=== PATIENT | male | born 2000 | race Caucasian/White ===

== ENCOUNTER 2021-08-21 15:28 | Inpatient (IN) | payer OTHER, SELFPAY ==
--- NOTE | 2021-08-21 17:36 | PC.NURSE ---
Pt admitted to M3 from [facility] ED on CV for SI following a suicide attempt by cutting left arm and chest. pt states disappointed to be alive. Pt very cooperative and fully engaged on admission Pt alert and fully oriented. reports auditory hallucinations to cut himself/kill himself. In addition, pt reports ideation to harm others. 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 Assessments completed and pt requesting to take a shower. Prior to shower pt stated I'm very cooperative and will do whatever you guys tell me to Just don't touch my face feeling of hopelessness discussed and pt states will find staff if feelings of hurting self or others.Pt states has been 100% compliant with medications but states he is now having CAH increasing for past few days. states if takes meds for sleep will sleep for 12 hours if no meds sleeps few hours. Shower taken. Laceration to left forearm redressed with dry sterile dressing with 5 sutures and steri strip. no drainage noted from site no redness or edema. Pt denies pain. pt conversing with pts and engaged in puzzle
[2021-08-21 18:00] VITALS: BP 145/69; PULSE 66; TEMP 36.7; O2SAT 98
[2021-08-21] MEDS: hydrOXYzine HCL 25 MG TABLET PO (20:46)
[2021-08-21] MEDS: QUEtiapine Fumarate 400 MG TABLET PO (20:46)
[2021-08-21] MEDS: metFORMIN HCl 500 MG TABLET PO (20:46)
[2021-08-21] MEDS: Melatonin 3 MG TABLET 9 MG PO (20:46)
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
[2021-08-21] MEDS: traZODone HCL 50 MG TABLET PO (23:44)
[2021-08-22 08:56] VITALS: BP 120/57; PULSE 60; RESP 18; TEMP 36.6; O2SAT 96
[2021-08-22] MEDS: metFORMIN HCl 500 MG TABLET PO ×2 (09:09→20:56)
[2021-08-22] MEDS: Venlafaxine HCL 25 MG TABLET 75 MG PO (09:09)
[2021-08-22] MEDS: QUEtiapine Fumarate 50 MG TABLET PO (09:09)
--- NOTE | 2021-08-22 09:24 | P.PNPSI_ITS ---
Subjective Subjective Date of Service: 08/22/21 Reason For Visit: SI Subjective Notes: Conditional Voluntary Interim History: Pt reports he slept well. He reports hearing voices- 2 guys and 1 girl. He reports hearing voices for the past 2 years. He reports passive SI but denies any plan or intent to hurt himself. He reports recently switched to new therapist who he has not met. He reports feeling increasingly more depressed for the past 2 weeks, but he states he is not sure of any triggers. He does report thinking about his father who when pt was 14 y/o on father's day. Medication Compliance: Yes Review of Systems Review of Systems Denies chest pain Denies shortness of breath Denies nausea vomiting diarrhea Denies fever chills Mental Status Exam Mental Status Exam Narrative: A&O. Overweight, casual attire. Good eye contact, attentive. No Tics or Tremors. No abnormal involuntary movements. Calm, somewhat guarded but able to answer questions. Non-pressured speech, spontaneous with regular rate and rhythm, normal volume and prosody. No prolonged speech latency or dysarthria. Mood is ?depressed,? affect is constricted. Endorses SI and urges to self harm but denies plan or intent, denies HI. Endorses CAH, denies VH or delusional thought content. Thoughts significant for negativity bias. No known cognitive or memory impairment. Insight/ Judgment limited. Diagnostics Vital Signs (24Hr): Vital Signs - 24 hr 08/21/21 18:00 08/22/21 08:56 Temperature 98.0 F 97.9 F Pulse Rate 66 60 Respiratory Rate 18 Blood Pressure 145/69 H 120/57 L Pulse Oximetry 98 96 Oxygen Delivery Method Room Air Room Air Labs Results: 08/22/21 08:43 Labs: Laboratory Results - last 48 hr 08/22/21 08/22/21 08/22/21 08:43 08:43 08:43 Sodium 139 Potassium 4.1 Chloride 107 Carbon Dioxide 23 Anion Gap 13 BUN 13 Creatinine 0.95 Estim Creat Clear Calc TNP Estimated GFR > 60 Fasting Glucose 110 H Estimat Average Glucose 111 Hemoglobin A1c % 5.5 Calcium 9.0 Total Bilirubin 0.3 AST 21 ALT 32 Alkaline Phosphatase 89 Total Protein 6.9 Albumin 4.2 Triglycerides 221 Cholesterol 159 LDL Cholesterol, Calc 86 HDL Cholesterol 29 Vitamin B12 378 Folate 15.0 TSH 1.30 Medications Medications Current Medications Acetaminophen (Acetaminophen 325 Mg Tablet) 650 mg PO Q6H PRN PRN Reason: Headache/Pain Mild Scale (1-3) Al Hydroxide/Mg Hydroxide (Magnesium Hydrox/Alum Hydrox 30 Ml Oral.Susp) 30 ml PO Q6H PRN PRN Reason: Heartburn/Nausea Famotidine (Famotidine 20 Mg Tablet) 20 mg PO DAILY PRN PRN Reason: Nausea Last Admin: 08/22/21 12:56 Dose: 20 mg Hydroxyzine HCl (Hydroxyzine Hcl 25 Mg Tablet) 25 mg PO Q6H PRN PRN Reason: Anxiety Last Admin: 08/21/21 20:46 Dose: 25 mg Hydroxyzine HCl (Hydroxyzine Hcl 50 Mg Tablet) 50 mg PO DAILY PRN PRN Reason: Anxiety Magnesium Hydroxide (Milk Of Magnesia 30 Ml Oral.Susp) 30 ml PO DAILY PRN PRN Reason: Constipation Melatonin (Melatonin 3 Mg Tablet) 9 mg PO BEDTIME CHRIS Last Admin: 08/21/21 20:46 Dose: 9 mg Metformin HCl (Metformin Hcl 500 Mg Tablet) 500 mg PO BID [facility] Last Admin: 08/22/21 09:09 Dose: 500 mg Quetiapine Fumarate (Quetiapine Fumarate 50 Mg Tablet) 50 mg PO DAILY [facility] Last Admin: 08/22/21 09:09 Dose: 50 mg Quetiapine Fumarate (Quetiapine Fumarate 400 Mg Tablet) 400 mg PO BEDTIME CHRIS Last Admin: 08/21/21 20:46 Dose: 400 mg Quetiapine Fumarate (Quetiapine Fumarate 25 Mg Tablet) 25 mg PO TID PRN PRN Reason: anxiety Last Admin: 08/22/21 11:01 Dose: 25 mg Trazodone HCl (Trazodone Hcl 50 Mg Tablet) 50 mg PO BEDTIME PRN PRN Reason: Insomnia Last Admin: 08/21/21 23:44 Dose: 50 mg Venlafaxine HCl (Venlafaxine Hcl 25 Mg Tablet) 75 mg PO DAILY [facility] Last Admin: 08/22/21 09:09 Dose: 75 mg Allergies Allergies Allergy/AdvReac Type Severity Reaction Status Date / Time No Known Allergies Allergy Verified 08/21/21 16:01 Assessment & Plan Assessment & Plan (1) Schizoaffective disorder, depressive type: Status: Acute Code(s): F25.1 - Schizoaffective disorder, depressive type (2) Type 2 diabetes mellitus: Status: Acute Code(s): E11.9 - Type 2 diabetes mellitus without complications Plan Reality is a 21 y.o. Male who carries a dx of schizoaffective disorder, depressive type. Pt presented to [facility] ED on 08/21/21 due to depression, SI, and SIB. Pt had self administered cuts to his chest, wrist via razor blade, some lacerations due require suturing on L forearm. Pt endorsed command AH, worsening over the last few days. Pt has hx of self harming bx, SA by OD, and CAH telling him to harm himself and others. Hx of multiple psych admissions since 2014. PLAN 1. Admit to M3, cv 15 minutes checks 08/22 continue current medications. I spent minutes with the patient and/or on the patient floor today, greater than?50% of which was spent counseling/coordinating care. Reason for contiued inpatient stay Substantial Risk for: harm to self and harm to others
[2021-08-22 09:39] LABS: Estimated Average Glucose 111 mg/dL; Hemoglobin A1C 132.6535 umol/L; Hemoglobin A1c % 5.5 %
[2021-08-22 09:41] LABS: Alanine Aminotransferase 32 U/L (0-40); Albumin Level 4.2 g/dL (3.5-5.0); Alkaline Phosphatase 89 U/L (39-117); Anion Gap 13 (12-20); Aspartate Amino Transferase 21 U/L (5-37); Bilirubin Total 0.3 mg/dL (0.0-1.0); Blood Urea Nitrogen 13 mg/dL (9-16); Carbon Dioxide 23 mmol/L (22-29); Chloride 107 mmol/L (96-108); Cholesterol 159 mg/dL; Estimated Glomerular Filt Rate > 60; Glucose Fasting 110 mg/dL (60-99); HDL Cholesterol 29 mg/dL; LDL Cholesterol Calculated 86 mg/dl; Potassium 4.1 mmol/L (3.3-5.1); Sodium 139 mmol/L (135-145); Total Protein 6.9 g/dL (6.5-8.0); Triglycerides 221 mg/dL
[2021-08-22 10:19] LABS: Vitamin B12 378 pg/mL (200-900)
[2021-08-22] MEDS: QUEtiapine Fumarate 25 MG TABLET PO (11:01)
[2021-08-22] MEDS: Famotidine 20 MG TABLET PO (12:56)
--- NOTE | 2021-08-22 14:14 | P.PNIM_ITS ---
Subjective Subjective Date of Service: 08/22/21 Interval History: Routine new patient evaluation no acute issues Review of Systems Denies chest pain Denies shortness of breath Denies nausea vomiting diarrhea Denies fever chills Physical Exam Vital Signs: Vital Signs: Last Vital Signs Temp 97.9 F 08/22/21 08:56 Pulse 60 08/22/21 08:56 Resp 18 08/22/21 08:56 BP 120/57 L 08/22/21 08:56 Pulse Ox 96 08/22/21 08:56 O2 Del Method 08/22/21 08:56 Const: Other: No acute distress Resp: Other: Clear to auscultation bilaterally no rales rhonchi or wheezes Cardio: Other: No S4; positive S1-S2; no S3 murmurs rubs or gallops GI: Other: Soft nontender nondistended with normoactive bowel sounds Neuro: Other: Cranial nerves 2-12 grossly intact as tested. Motor is 5/5 all extremities. Sensation is intact. Gait is normal. Cognition appropriate Extrem: Other: No edema bilaterally Objective Data Active Medications Acetaminophen (Acetaminophen 325 Mg Tablet) 650 mg PO Q6H PRN PRN Reason: Headache/Pain Mild Scale (1-3) Al Hydroxide/Mg Hydroxide (Magnesium Hydrox/Alum Hydrox 30 Ml Oral.Susp) 30 ml PO Q6H PRN PRN Reason: Heartburn/Nausea Famotidine (Famotidine 20 Mg Tablet) 20 mg PO DAILY PRN PRN Reason: Nausea Last Admin: 08/22/21 12:56 Dose: 20 mg Documented By: KARTHIK Hydroxyzine HCl (Hydroxyzine Hcl 25 Mg Tablet) 25 mg PO Q6H PRN PRN Reason: Anxiety Last Admin: 08/21/21 20:46 Dose: 25 mg Documented By: CHELSEA Hydroxyzine HCl (Hydroxyzine Hcl 50 Mg Tablet) 50 mg PO DAILY PRN PRN Reason: Anxiety Magnesium Hydroxide (Milk Of Magnesia 30 Ml Oral.Susp) 30 ml PO DAILY PRN PRN Reason: Constipation Melatonin (Melatonin 3 Mg Tablet) 9 mg PO BEDTIME [facility] Last Admin: 08/21/21 20:46 Dose: 9 mg Documented By: CHELSEA Metformin HCl (Metformin Hcl 500 Mg Tablet) 500 mg PO BID [facility] Last Admin: 08/22/21 09:09 Dose: 500 mg Documented By: EJ Quetiapine Fumarate (Quetiapine Fumarate 50 Mg Tablet) 50 mg PO DAILY [facility] Last Admin: 08/22/21 09:09 Dose: 50 mg Documented By: STELLA Quetiapine Fumarate (Quetiapine Fumarate 400 Mg Tablet) 400 mg PO BEDTIME [facility] Last Admin: 08/21/21 20:46 Dose: 400 mg Documented By: CHELSEA Quetiapine Fumarate (Quetiapine Fumarate 25 Mg Tablet) 25 mg PO TID PRN PRN Reason: anxiety Last Admin: 08/22/21 11:01 Dose: 25 mg Documented By: LALITA Trazodone HCl (Trazodone Hcl 50 Mg Tablet) 50 mg PO BEDTIME PRN PRN Reason: Insomnia Last Admin: 08/21/21 23:44 Dose: 50 mg Documented By: CHELSEA Venlafaxine HCl (Venlafaxine Hcl 25 Mg Tablet) 75 mg PO DAILY [facility] Last Admin: 08/22/21 09:09 Dose: 75 mg Documented By: STELLA Labs CBC & Chem 7: 08/22/21 08:43 Labs: Laboratory Results - last 24 hr 08/22/21 08/22/21 08/22/21 08:43 08:43 08:43 Anion Gap 13 Estim Creat Clear Calc TNP Estimated GFR > 60 Fasting Glucose 110 H Estimat Average Glucose 111 Hemoglobin A1c % 5.5 Calcium 9.0 Total Bilirubin 0.3 AST 21 ALT 32 Alkaline Phosphatase 89 Total Protein 6.9 Albumin 4.2 Triglycerides 221 Cholesterol 159 LDL Cholesterol, Calc 86 HDL Cholesterol 29 Vitamin B12 378 Folate 15.0 TSH 1.30 Assessment and Plan (1) Schizoaffective disorder, depressive type: Status: Acute (2) Type 2 diabetes mellitus: Status: Acute Plan 21-year-old male admitted to inpatient psych unit with diagnosis of schizoaffective disorder depressive type. There are no acute medical issues; physical exam unremarkable. Labs reviewed; glucose acceptable. Continue metformin as ordered. No need to follow POCs. Quality Stroke Does the patient have a stroke diagnosis?: No VTE Prior VTE?: No VTE Risk Level:: Medical - low VTE Device Contraindication: Treatment Not Indicated VTE Drug Contraindication: Treatment Not Indicated
[2021-08-22 18:00] VITALS: BP 136/65; PULSE 72; RESP 18; TEMP 36.7; O2SAT 98
[2021-08-22] MEDS: Melatonin 3 MG TABLET 9 MG PO (20:56)
[2021-08-22] MEDS: QUEtiapine Fumarate 400 MG TABLET PO (20:56)
[2021-08-23 08:22] VITALS: BP 121/68; PULSE 61; RESP 17; TEMP 36.6; O2SAT 98
[2021-08-23] MEDS: Venlafaxine HCL 25 MG TABLET 75 MG PO (08:36)
[2021-08-23] MEDS: metFORMIN HCl 500 MG TABLET PO ×2 (08:37→20:13)
[2021-08-23] MEDS: QUEtiapine Fumarate 50 MG TABLET PO (08:38)
[2021-08-23 08:43] LABS: Glucose, Whole Blood 108 mg/dL (60-115)
[2021-08-23] MEDS: Bismuth Subsalicylate 262 MG TABLET 524 MG PO (18:06)
[2021-08-23] MEDS: QUEtiapine Fumarate 25 MG TABLET PO (19:16)
[2021-08-23 20:00] VITALS: BP 149/80; PULSE 70; TEMP 36.6; O2SAT 97
[2021-08-23] MEDS: Melatonin 3 MG TABLET 9 MG PO (20:13)
[2021-08-23] MEDS: QUEtiapine Fumarate 200 MG TABLET PO (20:13)
[2021-08-23] MEDS: QUEtiapine Fumarate 400 MG TABLET PO (20:13)
--- NOTE | 2021-08-23 23:50 | P.PNPSI_ITS ---
Subjective Subjective Date of Service: 08/23/21 Reason For Visit: SI Subjective Notes: [facility] Warning and Conditional Voluntary Healthcare Proxy: No Guardianship: No Medical Problems Affecting Mental Status: No Interim History: Patient seen and discussed with team. Patient evaluated today and upon interview pt addressed some of his mom's concerns i.e. He denies giving away any possessions recently, saying I have not given things away in a year. Says his mom is over thinking so much, pt is not concerned with his cannabis use, as he says it helps him with anxiety/ agitation and he plans to get a medical card. Falls asleep within two hours and sleeps through the night. Denies increased appetite on seroquel. Mood is a little bit less depressed, feels less lonely as he has people he can relate to on the unit. Says being home is the most stressful thing, because his mom wants him to stay home and does not like his cannabis use. Continues to endorse intermittent AH to harm himself when he is triggered. In the milieu, patient is safe and appropriate in behavior, visible, social. Says he feels safe. Medication Compliance: Yes Side effects from medications: No Attending Groups: Yes Review of Systems Acute medical concerns: No Medical Review of Systems: unchanged Mental Status Exam Mental Status Exam Narrative: A&O. Overweight, casual attire. Good eye contact, attentive. No Tics or Tremors. No abnormal involuntary movements. Calm, somewhat guarded but able to answer questions. Non-pressured speech, spontaneous with regular rate and rhythm, normal volume and prosody. No prolonged speech latency or dysarthria. Mood is ?less depressed,? affect is constricted. Endorses SI and urges to self harm but denies plan or intent, denies HI. Endorses CAH, denies VH or delusional thought content. Thoughts significant for negativity bias. No known cognitive or memory impairment. Insight/ Judgment limited. Diagnostics Vital Signs (24Hr): Vital Signs - 24 hr 08/23/21 20:00 08/24/21 08:15 Temperature 97.9 F 97.9 F Pulse Rate 70 71 Respiratory Rate 16 Blood Pressure 149/80 H 129/61 Pulse Oximetry 97 98 Oxygen Delivery Method Room Air Room Air Labs Results: 08/22/21 08:43 Labs: Laboratory Results - last 48 hr 08/23/21 08:35 POC Glucose 108 Medications Medications Current Medications Acetaminophen (Acetaminophen 325 Mg Tablet) 650 mg PO Q6H PRN PRN Reason: Headache/Pain Mild Scale (1-3) Al Hydroxide/Mg Hydroxide (Magnesium Hydrox/Alum Hydrox 30 Ml Oral.Susp) 30 ml PO Q6H PRN PRN Reason: Heartburn/Nausea Bismuth Subsalicylate (Bismuth Subsalicylate 262 Mg Tablet) 524 mg PO QID PRN PRN Reason: upset stomach Last Admin: 08/23/21 18:06 Dose: 524 mg Famotidine (Famotidine 20 Mg Tablet) 20 mg PO DAILY PRN PRN Reason: Nausea Last Admin: 08/22/21 12:56 Dose: 20 mg Hydroxyzine HCl (Hydroxyzine Hcl 25 Mg Tablet) 25 mg PO Q6H PRN PRN Reason: Anxiety Last Admin: 08/21/21 20:46 Dose: 25 mg Hydroxyzine HCl (Hydroxyzine Hcl 50 Mg Tablet) 50 mg PO DAILY PRN PRN Reason: Anxiety Magnesium Hydroxide (Milk Of Magnesia 30 Ml Oral.Susp) 30 ml PO DAILY PRN PRN Reason: Constipation Melatonin (Melatonin 3 Mg Tablet) 9 mg PO BEDTIME [facility] Last Admin: 08/23/21 20:13 Dose: 9 mg Metformin HCl (Metformin Hcl 500 Mg Tablet) 500 mg PO BID [facility] Last Admin: 08/24/21 08:17 Dose: 500 mg Quetiapine Fumarate (Quetiapine Fumarate 50 Mg Tablet) 50 mg PO DAILY [facility] Last Admin: 08/24/21 08:16 Dose: 50 mg Quetiapine Fumarate (Quetiapine Fumarate 400 Mg Tablet) 400 mg PO BEDTIME [facility] Last Admin: 08/23/21 20:13 Dose: 400 mg Quetiapine Fumarate (Quetiapine Fumarate 25 Mg Tablet) 25 mg PO TID PRN PRN Reason: anxiety Last Admin: 08/24/21 10:29 Dose: 25 mg Quetiapine Fumarate (Quetiapine Fumarate 200 Mg Tablet) 200 mg PO BEDTIME [facility] Last Admin: 08/23/21 20:13 Dose: 200 mg Trazodone HCl (Trazodone Hcl 50 Mg Tablet) 50 mg PO BEDTIME PRN PRN Reason: Insomnia Last Admin: 08/21/21 23:44 Dose: 50 mg Venlafaxine HCl (Venlafaxine Hcl 25 Mg Tablet) 75 mg PO DAILY [facility] Last Admin: 08/24/21 08:16 Dose: 75 mg Allergies Allergies Allergy/AdvReac Type Severity Reaction Status Date / Time No Known Allergies Allergy Verified 08/21/21 16:01 Assessment & Plan Assessment & Plan (1) Schizoaffective disorder, depressive type: Status: Acute Code(s): F25.1 - Schizoaffective disorder, depressive type (2) Type 2 diabetes mellitus: Status: Acute Code(s): E11.9 - Type 2 diabetes mellitus without complications Plan Reality is a 21 y.o. Male who carries a dx of schizoaffective disorder, depressive type. Pt presented to [facility] ED on 08/21/21 due to depression, SI, and SIB. Pt had self administered cuts to his chest, wrist via razor blade, some lacerations due require suturing on L forearm. Pt endorsed command AH, worsening over the last few days. Pt has hx of self harming bx, SA by OD, and CAH telling him to harm himself and others. Hx of multiple psych admissions since 2014. PLAN 1. Admit to M3, cv 15 minutes checks 08/22 continue current medications. 08/23 increase seroquel to 600 mg QHS for depression, AH I spent minutes with the patient and/or on the patient floor today, greater than?50% of which was spent counseling/coordinating care. Patient educated on: medication risk/benefits Reason for contiued inpatient stay Substantial Risk for: harm to self and med/psych decompensation
[2021-08-24 08:15] VITALS: BP 129/61; PULSE 71; RESP 16; TEMP 36.6; O2SAT 98
[2021-08-24] MEDS: Venlafaxine HCL 25 MG TABLET 75 MG PO (08:16)
[2021-08-24] MEDS: QUEtiapine Fumarate 50 MG TABLET PO (08:16)
[2021-08-24] MEDS: metFORMIN HCl 500 MG TABLET PO ×2 (08:17→20:15)
[2021-08-24] MEDS: QUEtiapine Fumarate 25 MG TABLET PO (10:29)
--- NOTE | 2021-08-24 11:50 | P.PNPSI_ITS ---
Subjective Subjective Date of Service: 08/24/21 Reason For Visit: SI Subjective Notes: [facility] Warning and Conditional Voluntary Healthcare Proxy: No Guardianship: No Medical Problems Affecting Mental Status: No Interim History: Patient seen and discussed with team. Patient evaluated today and upon interview he reports he has been having some anxiety and depression and he feels sleepy but super hyper. He had an incident on the unit in which he reports CAH telling him to hurt another pt on the unit, however he utilized PRN. Otherwise, he says most of the day I was feeling pretty positive. Today he has noticed the voices are less bad. Says depression is better today too. In the milieu, patient is safe and social in behavior. Says he feels safe. Denies SI/SIB. Medication Compliance: Yes Side effects from medications: No Attending Groups: Yes Review of Systems Acute medical concerns: No Medical Review of Systems: unchanged Mental Status Exam Mental Status Exam Narrative: A&O. Overweight, casual attire. Good eye contact, attentive. No Tics or Tremors. No abnormal involuntary movements. Calm, somewhat guarded but able to answer q uestions. Non-pressured speech, spontaneous with regular rate and rhythm, normal volume and prosody. No prolonged speech latency or dysarthria. Mood is ?less depressed,? affect is constricted. Denies SI/SIB. Denies HI. Endorses CAH, denies VH or delusional thought content. Thoughts organized. No known cognitive or memory impairment. Insight/ Judgment limited. Diagnostics Vital Signs (24Hr): Vital Signs - 24 hr 08/23/21 20:00 08/24/21 08:15 Temperature 97.9 F 97.9 F Pulse Rate 70 71 Respiratory Rate 16 Blood Pressure 149/80 H 129/61 Pulse Oximetry 97 98 Oxygen Delivery Method Room Air Room Air Labs Results: 08/22/21 08:43 Labs: Laboratory Results - last 48 hr 08/23/21 08:35 POC Glucose 108 Medications Medications Current Medications Acetaminophen (Acetaminophen 325 Mg Tablet) 650 mg PO Q6H PRN PRN Reason: Headache/Pain Mild Scale (1-3) Al Hydroxide/Mg Hydroxide (Magnesium Hydrox/Alum Hydrox 30 Ml Oral.Susp) 30 ml PO Q6H PRN PRN Reason: Heartburn/Nausea Bismuth Subsalicylate (Bismuth Subsalicylate 262 Mg Tablet) 524 mg PO QID PRN PRN Reason: upset stomach Last Admin: 08/23/21 18:06 Dose: 524 mg Famotidine (Famotidine 20 Mg Tablet) 20 mg PO DAILY PRN PRN Reason: Nausea Last Admin: 08/22/21 12:56 Dose: 20 mg Hydroxyzine HCl (Hydroxyzine Hcl 25 Mg Tablet) 25 mg PO Q6H PRN PRN Reason: Anxiety Last Admin: 08/21/21 20:46 Dose: 25 mg Hydroxyzine HCl (Hydroxyzine Hcl 50 Mg Tablet) 50 mg PO DAILY PRN PRN Reason: Anxiety Magnesium Hydroxide (Milk Of Magnesia 30 Ml Oral.Susp) 30 ml PO DAILY PRN PRN Reason: Constipation Melatonin (Melatonin 3 Mg Tablet) 9 mg PO BEDTIME [facility] Last Admin: 08/23/21 20:13 Dose: 9 mg Metformin HCl (Metformin Hcl 500 Mg Tablet) 500 mg PO BID [facility] Last Admin: 08/24/21 08:17 Dose: 500 mg Quetiapine Fumarate (Quetiapine Fumarate 50 Mg Tablet) 50 mg PO DAILY [facility] Last Admin: 08/24/21 08:16 Dose: 50 mg Quetiapine Fumarate (Quetiapine Fumarate 400 Mg Tablet) 400 mg PO BEDTIME [facility] Last Admin: 08/23/21 20:13 Dose: 400 mg Quetiapine Fumarate (Quetiapine Fumarate 25 Mg Tablet) 25 mg PO TID PRN PRN Reason: anxiety Last Admin: 08/24/21 10:29 Dose: 25 mg Quetiapine Fumarate (Quetiapine Fumarate 200 Mg Tablet) 200 mg PO BEDTIME [facility] Last Admin: 08/23/21 20:13 Dose: 200 mg Trazodone HCl (Trazodone Hcl 50 Mg Tablet) 50 mg PO BEDTIME PRN PRN Reason: Insomnia Last Admin: 08/21/21 23:44 Dose: 50 mg Venlafaxine HCl (Venlafaxine Hcl 25 Mg Tablet) 75 mg PO DAILY [facility] Last Admin: 08/24/21 08:16 Dose: 75 mg Allergies Allergies Allergy/AdvReac Type Severity Reaction Status Date / Time No Known Allergies Allergy Verified 08/21/21 16:01 Assessment & Plan Assessment & Plan (1) Schizoaffective disorder, depressive type: Status: Acute Code(s): F25.1 - Schizoaffective disorder, depressive type (2) Type 2 diabetes mellitus: Status: Acute Code(s): E11.9 - Type 2 diabetes mellitus without complications Plan Reality is a 21 y.o. Male who carries a dx of schizoaffective disorder, depressive type. Pt presented to [facility] ED on 08/21/21 due to depression, SI, and SIB. Pt had self administered cuts to his chest, wrist via razor blade, some lacerations due require suturing on L forearm. Pt endorsed command AH, worsening over the last few days. Pt has hx of self harming bx, SA by OD, and CAH telling him to harm himself and others. Hx of multiple psych admissions since 2014. PLAN 1. Admit to M3, cv 15 minutes checks 08/22 continue current medications. 08/23 increase seroquel to 600 mg QHS for depression, AH 08/24 monitor seroquel for benefit, pt is calmer today but he did report CAH telling him to harm another pt. I spent minutes with the patient and/or on the patient floor today, greater than?50% of which was spent counseling/coordinating care. Patient educated on: medication risk/benefits and therapeutic strategies Reason for contiued inpatient stay Substantial Risk for: rapid decompensation and med/psych decompensation
[2021-08-24] MEDS: hydrOXYzine HCL 50 MG TABLET PO (12:46)
[2021-08-24] MEDS: Famotidine 20 MG TABLET PO (16:23)
[2021-08-24] MEDS: Bismuth Subsalicylate 262 MG TABLET 524 MG PO ×2 (16:33→17:54)
[2021-08-24] MEDS: QUEtiapine Fumarate 400 MG TABLET PO (20:14)
[2021-08-24] MEDS: Melatonin 3 MG TABLET 9 MG PO (20:17)
[2021-08-24] MEDS: QUEtiapine Fumarate 200 MG TABLET PO (20:17)
[2021-08-24 20:23] VITALS: BP 134/74; PULSE 85; TEMP 36.4; O2SAT 98
[2021-08-25 08:40] VITALS: BP 129/68; PULSE 77; RESP 18; TEMP 35.7; O2SAT 99
[2021-08-25] MEDS: Venlafaxine HCL 25 MG TABLET 75 MG PO (08:40)
[2021-08-25] MEDS: QUEtiapine Fumarate 50 MG TABLET PO (08:41)
[2021-08-25] MEDS: metFORMIN HCl 500 MG TABLET PO ×2 (08:41→20:04)
[2021-08-25] MEDS: Bismuth Subsalicylate 262 MG TABLET 524 MG PO (11:16)
[2021-08-25] MEDS: QUEtiapine Fumarate 25 MG TABLET PO ×2 (12:08→20:05)
[2021-08-25] MEDS: hydrOXYzine HCL 25 MG TABLET PO (12:08)
[2021-08-25] MEDS: Magnesium Hydrox/Alum Hydrox 30 ML ORAL.SUSP PO (15:15)
[2021-08-25] MEDS: hydrOXYzine HCL 50 MG TABLET PO (16:15)
[2021-08-25] MEDS: QUEtiapine Fumarate 400 MG TABLET PO (20:05)
[2021-08-25] MEDS: QUEtiapine Fumarate 200 MG TABLET PO (20:05)
[2021-08-25] MEDS: Melatonin 3 MG TABLET 9 MG PO (20:05)
[2021-08-25 20:24] VITALS: BP 141/68; PULSE 89; RESP 18; TEMP 36.7; O2SAT 96
--- NOTE | 2021-08-25 20:41 | P.PNPSI_ITS ---
Subjective Subjective Date of Service: 08/25/21 Reason For Visit: SI Subjective Notes: [facility] Warning Interim History: Patient seen and discussed with team. Patient evaluated today and upon interview pt reports he slept well, woke up beautifully. Says the voices are a lot less active today. I feel like im doing better. Says he feels really close to being ready to go out i.e. discharge home. In the milieu, patient is safe and appropriate in behavior, social. Denies SI/SIB/HI upon inquiry. Denies irritability or assaultive ideation. Says he feels safe. Medication Compliance: Yes Side effects from medications: No Attending Groups: Yes Review of Systems Acute medical concerns: No Medical Review of Systems: unchanged Mental Status Exam Mental Status Exam Narrative: A&O. Overweight, casual attire. Good eye contact, attentive. No Tics or Tremors. No abnormal involuntary movements. Calm, cooperative. Non-pressured speech, spontaneous with regular rate and rhythm, normal volume and prosody. No prolonged speech latency or dysarthria. Mood is ?better,? affect is euthymic. Denies SI/SIB. Denies HI. Endorses CAH, denies VH or delusional thought content. Thoughts organized. No known cognitive or memory impairment. Insight/ Judgment limited. Diagnostics Vital Signs (24Hr): Vital Signs - 24 hr 08/25/21 20:24 08/26/21 08:45 Temperature 98.1 F 97.4 F Pulse Rate 89 89 Respiratory Rate 18 18 Blood Pressure 141/68 H 135/67 Pulse Oximetry 96 98 Oxygen Delivery Method Room Air Room Air Labs Results: 08/22/21 08:43 Medications Medications Current Medications Acetaminophen (Acetaminophen 325 Mg Tablet) 650 mg PO Q6H PRN PRN Reason: Headache/Pain Mild Scale (1-3) Al Hydroxide/Mg Hydroxide (Magnesium Hydrox/Alum Hydrox 30 Ml Oral.Susp) 30 ml PO Q6H PRN PRN Reason: Heartburn/Nausea Last Admin: 08/25/21 15:15 Dose: 30 ml Bismuth Subsalicylate (Bismuth Subsalicylate 262 Mg Tablet) 524 mg PO QID PRN PRN Reason: upset stomach Last Admin: 08/25/21 11:16 Dose: 524 mg Famotidine (Famotidine 20 Mg Tablet) 20 mg PO DAILY PRN PRN Reason: Nausea Last Admin: 08/24/21 16:23 Dose: 20 mg Hydroxyzine HCl (Hydroxyzine Hcl 25 Mg Tablet) 25 mg PO Q6H PRN PRN Reason: Anxiety Last Admin: 08/25/21 12:08 Dose: 25 mg Hydroxyzine HCl (Hydroxyzine Hcl 50 Mg Tablet) 50 mg PO DAILY PRN PRN Reason: Anxiety Last Admin: 08/25/21 16:15 Dose: 50 mg Magnesium Hydroxide (Milk Of Magnesia 30 Ml Oral.Susp) 30 ml PO DAILY PRN PRN Reason: Constipation Melatonin (Melatonin 3 Mg Tablet) 9 mg PO BEDTIME [facility] Last Admin: 08/25/21 20:05 Dose: 9 mg Metformin HCl (Metformin Hcl 500 Mg Tablet) 500 mg PO BID [facility] Last Admin: 08/26/21 08:46 Dose: 500 mg Quetiapine Fumarate (Quetiapine Fumarate 50 Mg Tablet) 50 mg PO DAILY [facility] Last Admin: 08/26/21 08:46 Dose: 50 mg Quetiapine Fumarate (Quetiapine Fumarate 400 Mg Tablet) 400 mg PO BEDTIME [facility] Last Admin: 08/25/21 20:05 Dose: 400 mg Quetiapine Fumarate (Quetiapine Fumarate 25 Mg Tablet) 25 mg PO TID PRN PRN Reason: anxiety Last Admin: 08/25/21 20:05 Dose: 25 mg Quetiapine Fumarate (Quetiapine Fumarate 200 Mg Tablet) 200 mg PO BEDTIME [facility] Last Admin: 08/25/21 20:05 Dose: 200 mg Trazodone HCl (Trazodone Hcl 50 Mg Tablet) 50 mg PO BEDTIME PRN PRN Reason: Insomnia Last Admin: 08/21/21 23:44 Dose: 50 mg Venlafaxine HCl (Venlafaxine Hcl 25 Mg Tablet) 75 mg PO DAILY [facility] Last Admin: 08/26/21 08:46 Dose: 75 mg Allergies Allergies Allergy/AdvReac Type Severity Reaction Status Date / Time No Known Allergies Allergy Verified 08/21/21 16:01 Assessment & Plan Assessment & Plan (1) Schizoaffective disorder, depressive type: Status: Acute Code(s): F25.1 - Schizoaffective disorder, depressive type (2) Type 2 diabetes mellitus: Status: Acute Code(s): E11.9 - Type 2 diabetes mellitus without complications Plan Reality is a 21 y.o. Male who carries a dx of schizoaffective disorder, depressive type. Pt presented to [facility] ED on 08/21/21 due to depression, SI, and SIB. Pt had self administered cuts to his chest, wrist via razor blade, some lacerations due require suturing on L forearm. Pt endorsed command AH, worsening over the last few days. Pt has hx of self harming bx, SA by OD, and CAH telling him to harm himself and others. Hx of multiple psych admissions since 2014. PLAN 1. Admit to M3, cv 15 minutes checks 08/22 continue current medications. 08/23 increase seroquel to 600 mg QHS for depression, AH 08/24 monitor seroquel for benefit, pt is calmer today but he did report CAH telling him to harm another pt. 08/25 Pt denies AH today, says he feels like he is doing better I spent minutes with the patient and/or on the patient floor today, greater than?50% of which was spent counseling/coordinating care. Patient educated on: medication risk/benefits Reason for contiued inpatient stay Substantial Risk for: harm to self, harm to others, rapid decompensation and med/psych decompensation
[2021-08-26 08:45] VITALS: BP 135/67; PULSE 89; RESP 18; TEMP 36.3; O2SAT 98
[2021-08-26] MEDS: metFORMIN HCl 500 MG TABLET PO ×2 (08:46→20:02)
[2021-08-26] MEDS: Venlafaxine HCL 25 MG TABLET 75 MG PO (08:46)
[2021-08-26] MEDS: QUEtiapine Fumarate 50 MG TABLET PO (08:46)
[2021-08-26] MEDS: hydrOXYzine HCL 50 MG TABLET PO (14:56)
[2021-08-26] MEDS: Bismuth Subsalicylate 262 MG TABLET 524 MG PO (15:30)
[2021-08-26] MEDS: Magnesium Hydrox/Alum Hydrox 30 ML ORAL.SUSP PO (15:43)
[2021-08-26 20:00] VITALS: BP 133/70; PULSE 77; RESP 18; TEMP 36.3; O2SAT 98
[2021-08-26] MEDS: QUEtiapine Fumarate 200 MG TABLET PO (20:02)
[2021-08-26] MEDS: QUEtiapine Fumarate 400 MG TABLET PO (20:02)
[2021-08-26] MEDS: Melatonin 3 MG TABLET 9 MG PO (20:02)
[2021-08-26] MEDS: traZODone HCL 50 MG TABLET PO (20:39)
[2021-08-26] MEDS: QUEtiapine Fumarate 25 MG TABLET PO (20:39)
[2021-08-26] MEDS: hydrOXYzine HCL 25 MG TABLET PO (20:44)
[2021-08-27] MEDS: Venlafaxine HCL 25 MG TABLET 75 MG PO (09:37)
[2021-08-27] MEDS: metFORMIN HCl 500 MG TABLET PO ×2 (09:37→21:22)
[2021-08-27] MEDS: QUEtiapine Fumarate 50 MG TABLET PO (09:37)
[2021-08-27 09:43] VITALS: BP 132/79; PULSE 89; RESP 18; TEMP 36.9; O2SAT 98
[2021-08-27] MEDS: QUEtiapine Fumarate 25 MG TABLET PO (11:38)
[2021-08-27] MEDS: hydrOXYzine HCL 25 MG TABLET PO ×2 (11:38→21:22)
[2021-08-27] MEDS: Bismuth Subsalicylate 262 MG TABLET 524 MG PO (16:44)
[2021-08-27] MEDS: Magnesium Hydrox/Alum Hydrox 30 ML ORAL.SUSP PO (17:12)
--- NOTE | 2021-08-27 17:34 | HO.PSYCHPN ---
Subjective Subjective Date of Service: 08/27/21 Reason For Visit: SI Interim History: pt concerned he is eating to much at HS. educated seroquel may be responsible and counseled to be sure to sleep after taking it so as not to be up snacking. he feels he is sleeping well on seroquel, though. mood is pretty great. with some mild anxiety. very much wants to speak with [facility]. per staff, 3-day up 08/28. anxious. eating well, sleeping well. social and visible on eves. Mental Status Exam Mental Status Exam Narrative: A&O. Overweight, casual attire. Good eye contact, attentive. No Tics or Tremors. No abnormal involuntary movements. Calm, cooperative. Non-pressured speech, spontaneous with regular rate and rhythm, normal volume and prosody. No prolonged speech latency or dysarthria. Mood is ?pretty great. a little anxious,? affect is euthymic. Denies SI/SIB. Denies HI/AVH. Thoughts organized. No known cognitive or memory impairment. Insight/ Judgment limited. Diagnostics Vital Signs (24Hr): Vital Signs - 24 hr 08/26/21 20:00 08/27/21 09:43 Temperature 97.4 F 98.5 F Pulse Rate 77 89 Respiratory Rate 18 18 Blood Pressure 133/70 132/79 Pulse Oximetry 98 98 Oxygen Delivery Method Room Air Room Air Labs Results: 08/22/21 08:43 Medications Medications Current Medications Acetaminophen (Acetaminophen 325 Mg Tablet) 650 mg PO Q6H PRN PRN Reason: Headache/Pain Mild Scale (1-3) Al Hydroxide/Mg Hydroxide (Magnesium Hydrox/Alum Hydrox 30 Ml Oral.Susp) 30 ml PO Q6H PRN PRN Reason: Heartburn/Nausea Last Admin: 08/27/21 17:12 Dose: 30 ml Bismuth Subsalicylate (Bismuth Subsalicylate 262 Mg Tablet) 524 mg PO QID PRN PRN Reason: upset stomach Last Admin: 08/27/21 16:44 Dose: 524 mg Famotidine (Famotidine 20 Mg Tablet) 20 mg PO DAILY PRN PRN Reason: Nausea Last Admin: 08/24/21 16:23 Dose: 20 mg Hydroxyzine HCl (Hydroxyzine Hcl 25 Mg Tablet) 25 mg PO Q6H PRN PRN Reason: Anxiety Last Admin: 08/27/21 11:38 Dose: 25 mg Hydroxyzine HCl (Hydroxyzine Hcl 50 Mg Tablet) 50 mg PO DAILY PRN PRN Reason: Anxiety Last Admin: 08/26/21 14:56 Dose: 50 mg Magnesium Hydroxide (Milk Of Magnesia 30 Ml Oral.Susp) 30 ml PO DAILY PRN PRN Reason: Constipation Melatonin (Melatonin 3 Mg Tablet) 9 mg PO BEDTIME [facility] Last Admin: 08/26/21 20:02 Dose: 9 mg Metformin HCl (Metformin Hcl 500 Mg Tablet) 500 mg PO BID [facility] Last Admin: 08/27/21 09:37 Dose: 500 mg Quetiapine Fumarate (Quetiapine Fumarate 50 Mg Tablet) 50 mg PO DAILY [facility] Last Admin: 08/27/21 09:37 Dose: 50 mg Quetiapine Fumarate (Quetiapine Fumarate 400 Mg Tablet) 400 mg PO BEDTIME [facility] Last Admin: 08/26/21 20:02 Dose: 400 mg Quetiapine Fumarate (Quetiapine Fumarate 25 Mg Tablet) 25 mg PO TID PRN PRN Reason: anxiety Last Admin: 08/27/21 11:38 Dose: 25 mg Quetiapine Fumarate (Quetiapine Fumarate 200 Mg Tablet) 200 mg PO BEDTIME [facility] Last Admin: 08/26/21 20:02 Dose: 200 mg Trazodone HCl (Trazodone Hcl 50 Mg Tablet) 50 mg PO BEDTIME PRN PRN Reason: Insomnia Last Admin: 08/26/21 20:39 Dose: 50 mg Venlafaxine HCl (Venlafaxine Hcl 25 Mg Tablet) 75 mg PO DAILY [facility] Last Admin: 08/27/21 09:37 Dose: 75 mg Allergies Allergies Allergy/AdvReac Type Severity Reaction Status Date / Time No Known Allergies Allergy Verified 08/21/21 16:01 Assessment & Plan Assessment & Plan (1) Schizoaffective disorder, depressive type: Status: Acute Code(s): F25.1 - Schizoaffective disorder, depressive type (2) Type 2 diabetes mellitus: Status: Acute Code(s): E11.9 - Type 2 diabetes mellitus without complications Plan Reality is a 21 y.o. Male who carries a dx of schizoaffective disorder, depressive type. Pt presented to [facility] ED on 08/21/21 due to depression, SI, and SIB. Pt had self administered cuts to his chest, wrist via razor blade, some lacerations due require suturing on L forearm. Pt endorsed command AH, worsening over the last few days. Pt has hx of self harming bx, SA by OD, and CAH telling him to harm himself and others. Hx of multiple psych admissions since 2014. PLAN 1. Admit to M3, cv 15 minutes checks 08/22 continue current medications. 08/23 increase seroquel to 600 mg QHS for depression, AH 08/24 monitor seroquel for benefit, pt is calmer today but he did report CAH telling him to harm another pt. 08/25 Pt denies AH today, says he feels like he is doing better 08/27: no change in mgmt I spent __20____ minutes with the patient and/or on the patient floor today, greater than?50% of which was spent counseling/coordinating care. Reason for contiued inpatient stay Substantial Risk for: inability to function and rapid decompensation
[2021-08-27 21:20] VITALS: BP 136/76; PULSE 78; RESP 18; TEMP 36.5; O2SAT 97
[2021-08-27] MEDS: Melatonin 3 MG TABLET 9 MG PO (21:22)
[2021-08-27] MEDS: hydrOXYzine HCL 50 MG TABLET PO (21:22)
[2021-08-27] MEDS: QUEtiapine Fumarate 200 MG TABLET PO (21:22)
[2021-08-27] MEDS: QUEtiapine Fumarate 400 MG TABLET PO (21:22)
[2021-08-27] MEDS: traZODone HCL 50 MG TABLET PO (21:23)
[2021-08-28 08:01] VITALS: BP 131/70; PULSE 84; RESP 16; TEMP 36.6; O2SAT 100
[2021-08-28] MEDS: metFORMIN HCl 500 MG TABLET PO (08:06)
[2021-08-28] MEDS: QUEtiapine Fumarate 50 MG TABLET PO (08:07)
[2021-08-28] MEDS: Venlafaxine HCL 25 MG TABLET 75 MG PO (08:07)
--- NOTE | 2021-08-28 10:07 | P.DS_ITS ---
DS: Providers Provider Date of Service: 08/28/21 Date of admission: 08/21/21 15:28 Primary care physician: Dafne Snyder MD Consults: 08/21/21 17:55 Consult to Hospitalist Routine Consulting Provider: Hospitalist Reason For Exam: admitted from [facility] DS: Diagnosis Discharge Diagnosis (1) Schizoaffective disorder, depressive type: Status: Acute (2) Type 2 diabetes mellitus: Status: Acute DS: Medications Discharge Medications Home Medications: Home Medications Medication Instructions Recorded Confirmed melatonin 10 mg tablet 10 mg PO BEDTIME 08/21/21 08/21/21 metformin 500 mg tablet 500 mg PO BID 08/21/21 08/21/21 Previous Rx's Medication Instructions Recorded famotidine 20 mg tablet 20 mg PO DAILY PRN Nausea #30 tabs 08/28/21 hydroxyzine HCl 50 mg tablet 50 mg PO DAILY PRN Anxiety #30 tabs 08/28/21 quetiapine 200 mg tablet 200 mg PO BEDTIME #30 tabs 08/28/21 quetiapine 25 mg tablet 25 mg PO TID PRN anxiety #30 tabs 08/28/21 quetiapine 400 mg tablet 400 mg PO BEDTIME #30 tabs 08/28/21 quetiapine 50 mg tablet 50 mg PO DAILY #30 tabs 08/28/21 trazodone 50 mg tablet 50 mg PO BEDTIME PRN Insomnia #30 08/28/21 tabs venlafaxine 75 mg tablet 75 mg PO DAILY #30 tabs 08/28/21 Mental Status Exam Mental Status Exam Narrative: A&O. Overweight, casual attire. Good eye contact, attentive. No Tics or Tremors. No abnormal involuntary movements. Calm, cooperative. Non-pressured speech, spontaneous with regular rate and rhythm, normal volume and prosody. No prolonged speech latency or dysarthria. Mood is ?pretty great. a little anxious,? affect is euthymic. Denies SI/SIB. Denies HI/AVH. Thoughts organized. No known cognitive or memory impairment. Insight/ Judgment limited. Data Data Completed and Pending Completed studies during hospitalization [Text1]: 08/22/21 08/22/21 08/22/21 08:43 08:43 08:43 Sodium 139 Potassium 4.1 Chloride 107 Carbon Dioxide 23 Anion Gap 13 BUN 13 Creatinine 0.95 Estim Creat Clear Calc TNP Estimated GFR > 60 POC Glucose Fasting Glucose 110 H Estimat Average Glucose 111 Hemoglobin A1c % 5.5 Calcium 9.0 Total Bilirubin 0.3 AST 21 ALT 32 Alkaline Phosphatase 89 Total Protein 6.9 Albumin 4.2 Triglycerides 221 Cholesterol 159 LDL Cholesterol, Calc 86 HDL Cholesterol 29 Vitamin B12 378 Folate 15.0 TSH 1.30 08/23/21 08:35 Sodium Potassium Chloride Carbon Dioxide Anion Gap BUN Creatinine Estim Creat Clear Calc Estimated GFR POC Glucose 108 Fasting Glucose Estimat Average Glucose Hemoglobin A1c % Calcium Total Bilirubin AST ALT Alkaline Phosphatase Total Protein Albumin Triglycerides Cholesterol LDL Cholesterol, Calc HDL Cholesterol Vitamin B12 Folate TSH DS: Summary Hospital Course Hospital Course: HPI: Reality is a 21 y.o. Male who carries a dx of schizoaffective disorder, depressive type. Pt presented to [facility] ED on 08/21/21 due to depression, SI, and SIB. Pt had self administered cuts to his chest, wrist via razor blade, some lacerations due require suturing on L forearm. Pt endorsed command AH, worsening over the last few days, telling him to self harm and cut deeper, saying ?no one will miss him, no one cares, no one will know that he is gone.? 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 Unable to identify precipitating factors other than ?just life in general and stress.? Hx of multiple psych admissions since 2014. 08/21/21: CBC wnl, CMP wnl except random glucose H 101. Utox negative except for cannabis. No alcohol use. I evaluated the pt this evening and upon interview he reports he has been med adherent because his mom is the one who gives him the meds. Pt is a poor historian when it comes to past med trials. Says his sleep is good with seroquel, falls asleep 10pm-8am and that without it he will stay up until 2-3am and wakes up at 6am. Says he does not think his meds are really working, ?the only meds that are working are the insomnia meds.? Also reports past benefit on ativan and says ?they took it away for no reason.? Pt reports his AH are ?every now and then? and are ?triggered when I start feeling really sad.? Pt says he has been feeling sad due to ?thinking about the past,? i.e. old friends, his dad. Also says at work ([employer]) his coworkers are arguing, there is a lot of drama. Says he is ?feeling really lonely to be honest,? says he is feeling ?unloved? and ?like nobody would care if I wasn't here.? Says he tends to focus on the negative. He is somewhat future oriented, as he wants to work a job he enjoys, something in technology. Feels safe on the unit. Endorses passive SI and urges to self harm but denies plan or intent. Denies aggression. Pt reports his last incident of self harm was one year ago in which he engaged in superficial cutting. Pt uses cannabis in the morning and at bedtime. Denies other substance use or alcohol use. I spoke with pt?s mom on the phone. She reports pt has had similar episodes in which he is hospitalized, stabilized on meds, but says this only lasts a few months and then the effects seem to wear off. His Mom is concerned with his cannabis use. Says ?he?s okay if he doesnt associate with outside of the house? and that ?if associates he with his friends outside of the house or starts smoking then he ends up in crisis, he loses the control.? She reports recent concerning bx of selling his xbox, ?he disappears all this stuff,? and when his mom confronts him about selling his things he will say he dont know what happened to them. Per mom, at baseline pt is ?polite? and ?respectful,? but says ?when he starts smoking he?s another person,? i.e. easily agitated. Past Psychiatric History: -Past med trials: Thorazine, abilify, haldol, perphenazine, depakote, olanzapine, zoloft, ativan, Wellbutrin, Tenex, lexapro, and Ativan -Pt has OP psychiatrist, Apoorva Gaxiola and has OP therapy at [facility] -Per chart, pt has hx of HI and threats to harm the family pet -Hx of SIB via superficial cutting -Pt has hx of multiple psych admissions since 2014, last [facility] [place], [facility], [place]. Hx of CCS, CBAT, Pediatric PHP at [facility].? -Hx of presenting to crisis with SI with plans to overdose on meds or cut his throat/HI, self harming via cutting, and command AH.? ? I reviewed past [facility] records: -Pt has hx of being diagnosed with ADHD, DMDD in childhood. -Hx of suicide attempt by OD on Wellbutrin in August 2015 -Hx of CBAT program in 2015 for depression, aggression, SI, HI towards his peers and teachers with a plan to get a gun or bring a knife to school and to strangle his teachers. He was stabilized on Zoloft 75 mg, Wellbutrin 450 mg, and Melatonin 3mg.? -Hx of PHP in 2018, stabilized on lexapro 10 mg QHS and abilify 2 mg.? -IPLOC at [place] in 2018 for depression, SA by OD on unknown pills. He was stabilized on Depakote 250mg daily and 500mg qhs, Abilify 15mg qhs, and they d/c'd Lexapro. -IPLOC at [facility] in 2019 due to depression, A/VH, passive SI. He was given zoloft 50 mg along with his depakote and abilify.? -Hx of CCS/respite in 2020 for increased depression, AH, poor sleep. He was stabilized w/ the addition of Clonidine and Abilify was increased to 20mg. -Pt recently hospitalized at [facility] in 02/2021 due to command AH telling him to kill his mom and his dog. Abilify was discontinued and he was stabilized on quetiapine 25 mg tid prn, quetiapine 400 mg at bedtime and 50 mg daily, trazodone 50 mg at bedtime, effexor 75 mg, and hydroxyzine 50 mg prn. ? HOSPITAL COURSE On the unit, Mr. Husain was admitted on a CV and placed on 15 minutes checks for safety. Pt reported hearing voices on and off telling him to harm himself or others. He reports voices are two guys and one female. He does report voices getting worse with cannabis, which mother also reports but he insists smoking cannabis helps him calm down. We discussed risk of exacerbation of psychiatric symptoms mainly psychosis and delusions with cannabis. After discussing risks benefits and alternative treatment options, Mr. Husain agreed to continue and adjust seroquel for mood and voices. His affect gradually brighten without presenting labile. Pt denies VH/AH and did not appear internally preoccupied. He was increasingly more visible on the unit and social with select peers. He denied SI/HI throughout this admission. No plan or intent to hurt himself or others. He agreed to continue OP psychiatric treatment. Mother denied any safety concerns at time of discharge. There were no incidences of disruptive behaviors nor use of restraints. Status at Discharge Cognitive/behavioral status at discharge: Pt with bright, non labile affect. No SI/HI. No VH/AH. Sleep and appetite improved. No signs of psychosis or delusional content noted or reported. No signs of aggression towards self or others. Pt increasingly more future oriented as evidenced by statements related to looking forward to continue OP psych tx and see family. Functional status at discharge: independent ambulation Overall status at discharge: patient is progressing back to baseline Time Spent with Patient Time attestation: Total time spent providing and/or coordinating discharge services: Discharge Plan Discharge Patient Disposition: Home Health Service Discharge Diagnosis: Schizoaffective Disorder Referrals: Apoorva Gaxiola (psychiatrist) [Other] - 09/08/21 11:30 am (Telehealth appointment. You will remain on the waitlist for therapy) Department of Mental Health (DM) [Other] (If you feel that you need more support/services for your mental health, work with your CSP worker or psychiatrist to fill out a [facility] application. You and your family can also call to request assistance) [employer] (CSP) [Other] - 1 Week (Referral submitted. [facility] will be calling you to discuss the referral. If you do not hear from anyone within one week of discharge, call the number above for information) Dafne Snyder MD [Primary Care Provider] - 09/09/21 10:45 am () Discharge Medications: New quetiapine 25 mg Tablet 25 mg PO TID PRN (Reason: anxiety) Qty: 30 0RF trazodone 50 mg Tablet 50 mg PO BEDTIME PRN (Reason: Insomnia) Qty: 30 0RF quetiapine 200 mg Tablet 200 mg PO BEDTIME Qty: 30 0RF hydroxyzine HCl 50 mg Tablet 50 mg PO DAILY PRN (Reason: Anxiety) Qty: 30 0RF famotidine 20 mg Tablet 20 mg PO DAILY PRN (Reason: Nausea) Qty: 30 0RF quetiapine 50 mg Tablet 50 mg PO DAILY Qty: 30 0RF quetiapine 400 mg Tablet 400 mg PO BEDTIME Qty: 30 0RF Continued melatonin 10 mg Tablet 10 mg PO BEDTIME metformin 500 mg Tablet 500 mg PO BID venlafaxine 75 mg Tablet 75 mg PO DAILY Qty: 30 0RF Discontinued quetiapine [Seroquel] 25 mg Tablet 25 mg PO DAILY hydroxyzine HCl 50 mg Tablet 50 mg PO DAILY PRN (Reason: Anxiety) quetiapine [Seroquel] 50 mg Tablet 50 mg PO DAILY quetiapine [Seroquel] 400 mg Tablet 400 mg PO BEDTIME Discharge Orders: Discharge Order (Routine); Ordered 08/28/21 Ordered By: Adele Martinez Diet: Regular diet Activity on Discharge: As tolerated Stand Alone Forms: Patient Portal Discharge page, Community Support Care Plan Goals: 1. Maintain mood. No SI/HI No AH No overt delusional content reported Health Concerns: Follow up with PCP for regular care Plan of Treatment: 1. Take medications as prescribed 2. Go to nearest ED or call 911 in event of emergency Assessment: Pt with bright, non labile affect. He has been visible, attending to groups, social with select peers. No signs of aggression towards self or others. No SI/HI. No CAH. No overt delusional content noted or reported. Mother in agreement with discharge and denies safety concerns at time of discharge. Discharge Date/Time: 08/28/21 10:48
--- NOTE | 2021-08-28 10:11 | PC.NURSE ---
Patient is alert and oriented x 4. Patient is aware and in agreement with discharge. Patient reports an understanding of discharge instructions. Patient denies SI/HI/AH/VH. Currently reports being Some what anxious about being discharged, but a good type . Reported looking forward to going back to work. Patient denies acute physical complaints.
[2021-08-28] MEDS: QUEtiapine Fumarate 25 MG TABLET PO (10:30)
== END 2021-08-28 10:48 | disposition home health service (06) | DRG 750 ==
PROVIDERS: Admitting Provider Psychiatry & Neurology Psychiatry; PCP Pediatrics; Responsible Provider Social Worker; Visit Provider Social Worker
DX: F25.1 Schizoaffective disorder, depressive type (principal); R45.851 Suicidal ideations; E11.9 Type 2 diabetes mellitus without complications; Z79.84 Long term (current) use of oral hypoglycemic drugs; Z79.899 Other long term (current) drug therapy
CPT/HCPCS: 36415; 80053; 80061; 82607; 82746; 82947; 83036; 84443

== ENCOUNTER 2021-10-29 14:10 | Inpatient (IN) | payer OTHER, SELFPAY ==
[2021-10-29 14:21] VITALS: BP 116/78; PULSE 75; O2SAT 98
[2021-10-29 14:41] VITALS: BP 147/66; PULSE 78; RESP 16; TEMP 36.3; O2SAT 98; BMI 40.7
--- NOTE | 2021-10-29 16:33 | ED_ITS ---
HPI - Psych General Chief Complaint: Psychiatric Symptoms <Shana Triplett MD - Last Filed: 10/29/21 16:38> Stated Complaint: SI W/PLAN,SECT 12,CALM & COOP PER EMS <Shana Triplett MD - Last Filed: 10/29/21 16:38> Time Seen by Provider: 10/29/21 14:33 <Shana Triplett MD - Last Filed: 10/29/21 16:38> Source: patient and EMS <Shana Triplett MD - Last Filed: 10/29/21 16:38> Mode of arrival: EMS <Shana Triplett MD - Last Filed: 10/29/21 16:38> Limitations: no limitations <Shana Triplett MD - Last Filed: 10/29/21 16:38> History of Present Illness HPI Narrative: The patient's emergency via ambulance from [facility]. Patient is on a Section 12. Patient has multiple cuts to his left wrist and left shoulder. Patient states that he has suicidal ideation, states he has ?multiple plans? to hurt himself. <Shana Triplett MD - Last Filed: 10/29/21 16:38> Related Data Home Medications: Home Medications Medication Instructions Recorded Confirmed metformin 500 mg tablet 500 mg PO BID 08/21/21 10/29/21 lithium carbonate 300 mg capsule 1 cap PO BID 10/29/21 10/29/21 quetiapine 400 mg tablet 600 mg PO BEDTIME 10/29/21 10/29/21 Previous Rx's Medication Instructions Recorded hydroxyzine HCl 50 mg tablet 50 mg PO DAILY PRN Anxiety #30 tabs 08/28/21 trazodone 50 mg tablet 50 mg PO BEDTIME PRN Insomnia #30 08/28/21 tabs venlafaxine 75 mg tablet 75 mg PO DAILY #30 tabs 08/28/21 <Shana Triplett MD - Last Filed: 10/29/21 16:38> Allergies/Adverse Reactions: Allergies Allergy/AdvReac Type Severity Reaction Status Date / Time No Known Allergies Allergy Verified 08/21/21 16:01 <Shana Triplett MD - Last Filed: 10/29/21 16:38> Review of Systems Review of Systems: Constitutional : No Weight loss, No Fever, No Chills, No Night Sweats, No Fatigue, No Malaise ENT/Mouth : No Hearing loss, No Ear Pain, No Nasal Congestion, No Sinus Pain, No Hoarseness, No sore throat, No Rhinorrhea, No Swallowing Difficulty Eyes: No Eye Pain, No Swelling, No Redness, No Foreign Body, No Discharge, No Vision Changes Cardiovascular : No Chest Pain, No SOB, No Dyspnea on Exertion, No Orthopnea, No Edema, No Palpitations Respiratory : No Cough, No Sputum, No Wheezing, No Smoke Exposure, No Dyspnea Gastrointestinal : No Nausea, No Vomiting, No Diarrhea, No Constipation, No abdominal Pain, No Hematochezia, No Melena Genitourinary : no irregular bleeding, No Dysuria, No Urinary Frequency, No Hematuria, No Urinary Incontinence, No Urgency, No Flank Pain, No Urinary Flow Changes, No Hesitancy Musculoskeletal : No joint pain, No Myalgias, No Joint Swelling Skin : Complaining of multiple superficial lacerations to the left wrist and left shoulder Neuro : No Weakness, No Numbness, No Paresthesias, No Loss of Consciousness, No Dizziness, No Headache Psych : No Anxiety/Panic, No Depression, complaining of suicidal ideation Heme/Lymph: No Bruising, No Bleeding,No Lymphadenopathy Endocrine : No Polyuria, No Polydipsia, No Temperature Intolerance <Shana Triplett MD - Last Filed: 10/29/21 16:38> [facility] Past Medical History Medical History: Medical History Schizoaffective disorder, depressive type Type 2 diabetes mellitus <Shana Triplett MD - Last Filed: 10/29/21 16:38> Social History Social History: Social History Household Members: Family Household Members Other:: mother,step sister, brother 1 nephew 1 niece Housing: House Housing Other:: 1 familiy house Do you presently have visiting nurse or other home services: No Patient Tobacco Use Status: Never used Tobacco Substance Use Type: Marijuana Advance Directives: No Advance Directives Information Provided: No service: No Sexual orientation: Did not discuss. <Shana Triplett MD - Last Filed: 10/29/21 16:38> Physical Exam Vital Signs: Vital Signs: Last Vital Signs Temp 97.0 F 10/30/21 05:39 Pulse 64 10/30/21 05:39 Resp 17 10/30/21 05:39 BP 131/73 10/30/21 05:39 Pulse Ox 99 10/30/21 05:39 O2 Del Method 10/30/21 05:39 BMI result Body Mass Index 40.7 <Shana Triplett MD - Last Filed: 10/29/21 16:38> Vital Signs: Last Vital Signs Temp 97.0 F 10/30/21 05:39 Pulse 64 10/30/21 05:39 Resp 17 10/30/21 05:39 BP 131/73 10/30/21 05:39 Pulse Ox 99 10/30/21 05:39 O2 Del Method 10/30/21 05:39 BMI result Body Mass Index 40.7 <Ayush Ingram MD - Last Filed: 10/30/21 11:02> Const: Other: Appearance: Alert. Oriented X3. No acute distress. Eyes: Pupils equal, round and reactive to light. ENT: Pharynx normal. Neck: Normal inspection. Neck supple. No lymph nodes noted. No crepitus CVS: Normal heart rate and rhythm. Pulses normal. Normal S1 and S2 Respiratory: No respiratory distress. Breath sounds normal. No Wheezing. No rales Abdomen: Soft and nontender. No rigidity. No distention. Skin: Skin warm and dry. Normal skin color. Normal skin turgor. Extremities: No lower extremity edema. No Lacerations. No Rash Neuro: Oriented X 3. No motor deficit. No sensory deficit. Moving all extremities. No slurred speech. CN 2 through 12 grossly intact Psych: calm, cooperative, seems a bit paranoid, asking if we searched all of the visitors for weapons before letting them in to the emergency room <Shana Triplett MD - Last Filed: 10/29/21 16:38> Course Course Course Narrative: Patient is on a Section 12, which was started by [facility] out in the community. Physician observation started at 16:30 <Shana Triplett MD - Last Filed: 10/29/21 16:38> Patient is on a Section 12, which was started by [facility] out in the community. Physician observation started at 16:30 0624 : Physician observation continued: 21-year-old male patient presented to the emergency department for evaluation of suicidal ideation with multiple plans. Patient has been evaluated by [facility] and is placed on a Section 12 and is a bed search. Patient's COVID 19 was negative. Urine tox screen was positive for marijuana. According to nursing staff the patient slept all night. Patient's outpatient medication regimen is been ordered. Patient will be kept in physician observation until appropriate disposition can be obtained. 1100: End physician observation: The patient has been accepted on the psychiatric unit for further management and psychiatric evaluation. <Ayush Ingram MD - Last Filed: 10/30/21 11:02> MDM - Psych Lab Data Labs: Lab Results 10/29/21 10/29/21 10/29/21 Range/Units 17:12 17:14 18:01 POC Glucose 97 (60-115) mg/dL Urine Opiates Screen Not Detected (Not Detect) Urine Fentanyl Screen Not Detected (Not Detect) Ur Barbiturates Screen Not Detected (Not Detect) Ur Phencyclidine Scrn Not Detected (Not Detect) Ur Amphetamines Screen Not Detected (Not Detect) U Benzodiazepines Scrn Not Detected (Not Detect) Urine Cocaine Screen Not Detected (Not Detect) U Marijuana (THC) Screen POSITIVE H (Not Detect) COVID-19 (KATHIE) Negative (Negative) COVID-19 Clin Com See Note <Shana Triplett MD - Last Filed: 10/29/21 16:38> Lab Results 10/29/21 10/29/21 10/29/21 Range/Units 17:12 17:14 18:01 POC Glucose 97 (60-115) mg/dL Urine Opiates Screen Not Detected (Not Detect) Urine Fentanyl Screen Not Detected (Not Detect) Ur Barbiturates Screen Not Detected (Not Detect) Ur Phencyclidine Scrn Not Detected (Not Detect) Ur Amphetamines Screen Not Detected (Not Detect) U Benzodiazepines Scrn Not Detected (Not Detect) Urine Cocaine Screen Not Detected (Not Detect) U Marijuana (THC) Screen POSITIVE H (Not Detect) COVID-19 (KATHIE) Negative (Negative) COVID-19 Clin Com See Note <Ayush Ingram MD - Last Filed: 10/30/21 11:02> Discharge Plan Discharge Patient Disposition: Admitted As Inpatient <Shana Triplett MD - Last Filed: 10/29/21 16:38> Prescriptions: No Action metformin 500 mg Tablet 500 mg PO BID trazodone 50 mg Tablet 50 mg PO BEDTIME PRN (Reason: Insomnia) Qty: 30 0RF hydroxyzine HCl 50 mg Tablet 50 mg PO DAILY PRN (Reason: Anxiety) Qty: 30 0RF venlafaxine 75 mg Tablet 75 mg PO DAILY Qty: 30 0RF lithium carbonate 300 mg capsule 1 cap PO BID quetiapine 400 mg tablet 600 mg PO BEDTIME <Shana Triplett MD - Last Filed: 10/29/21 16:38>
[2021-10-29 17:19] LABS: Glucose, Whole Blood 97 mg/dL (60-115)
--- NOTE | 2021-10-29 17:25 | PC.NURSE ---
pt a&ox3, vss, reports some thoughts of SI, but better w distraction of talking w 1:1, pt changed over and belonging secured. denies any pain at this time.
[2021-10-29 17:40] LABS: COVID-19 Test Negative (Negative)
[2021-10-29 18:21] LABS: Amphetamine Screen Urine Not Detected (Not Detect); Barbiturates, Urine Not Detected (Not Detect); Benzodiazepines Screen Urine Not Detected (Not Detect); Cannabinoid Screen Urine POSITIVE (Not Detect); Cocaine Screen Urine Not Detected (Not Detect); Fentanyl, urine Not Detected (Not Detect); Opiate Screen Urine Not Detected (Not Detect); Phencyclidine Screen Urine Not Detected (Not Detect)
[2021-10-29] MEDS: Acetaminophen 325 MG TABLET 975 MG PO (20:25)
--- NOTE | 2021-10-29 20:27 | PC.NURSE ---
pt a&o, no sob or chest pain. pt is clam and cooperative at this time . pt placed in a bed for comfort and 1:1.
--- NOTE | 2021-10-29 21:47 | PHA.MEDREC ---
Pharmacy Consult ? Medication Reconciliation Pharmacy has completed the medication reconciliation. Patient was a poor historian. Was only able to tell me he takes three meds but can only remember quetiapine 600mg at bedtime. Patient also states he takes metformin, venlafaxine and hydroxyzine after providing him their names. Confirmed list with pharmacy claim. NOTE: [facility] has claims of quetiapine 25 mg, 50 mg, and 400 mg all separate scripts, however patient states he only takes it once at bedtime. I suspect the patient is not taking them as directed, I suspect patient is taking all quetiapine dosages at once.
[2021-10-30 05:39] VITALS: BP 131/73; PULSE 64; RESP 17; TEMP 36.1; O2SAT 99
--- NOTE | 2021-10-30 05:49 | PC.NURSE ---
Patient slept through the night, no distress observed/reported, med rec completed/MAR active, thought content clear and thought process coherent, behavior non concerning, disposition per N is section 12 inpatient bed search, VSS, will continue to monitor.
[2021-10-30] MEDS: metFORMIN HCl 500 MG TABLET PO ×2 (09:25→20:50)
[2021-10-30] MEDS: Venlafaxine HCL 25 MG TABLET 75 MG PO (09:25)
[2021-10-30] MEDS: Lithium Carbonate 300 MG CAPSULE PO ×2 (09:26→20:50)
[2021-10-30 11:00] VITALS: BP 141/81; PULSE 70; RESP 16; TEMP 37.1; O2SAT 99
[2021-10-30] MEDS: hydrOXYzine HCL 50 MG TABLET PO (11:12)
--- NOTE | 2021-10-30 11:29 | PC.NURSE ---
pt reports anxiety, prn Atarax given, effect pending. pt reports si without a plan, he denies hi. admission pending. pt in common area coloring, no issues observed/reported.
[2021-10-30 11:58] LABS: Hematocrit 42.9 % (42.0-52.0); Hemoglobin 14.6 g/dl (14.0-18.0); Mean Corpuscular Hemoglobin 26.4 pg (27.0-33.0); Mean Corpuscular Volume 77.6 fL (80.0-98.0); Mean Platelet Volume 9.8 fL (9.4-12.4); Platelet Count 399 X10*3/uL (160-400); Red Blood Count 5.53 X10*6/uL (4.60-5.80); Red Cell Distribution Width 12.7 % (11.0-16.0); White Blood Count 6.8 X10*3/uL (4.8-10.8)
[2021-10-30 12:10] LABS: Alanine Aminotransferase 44 U/L (0-40); Albumin Level 4.9 g/dL (3.5-5.0); Alkaline Phosphatase 110 U/L (39-117); Anion Gap 16 (12-20); Aspartate Amino Transferase 23 U/L (5-37); Bilirubin Total 0.6 mg/dL (0.0-1.0); Blood Urea Nitrogen 15 mg/dL (9-16); Carbon Dioxide 23 mmol/L (22-29); Chloride 104 mmol/L (96-108); Creatinine Clr Calc Pharmacy 130.3; Estimated Glomerular Filt Rate > 60; Glucose Random 97 mg/dL (60-115); Potassium 4.6 mmol/L (3.3-5.1); Sodium 138 mmol/L (135-145); Total Protein 8.5 g/dL (6.5-8.0)
[2021-10-30 16:50] VITALS: BP 140/77; PULSE 72; RESP 16; TEMP 36.6; O2SAT 98
[2021-10-30 18:22] LABS: Lithium 0.22 mmol/L (0.60-1.20)
--- NOTE | 2021-10-30 18:30 | PC.NURSE ---
Addendum entered by Stephanie Talavera RN 10/30/21 19:27: Please be aware pt sts he asks for Tylenol when AH become overwhelming. Original Note: Pt is 21-year-old COVID-negative male admitted from [facility] with SA/SI, AH, CAH. Pt has numerous superficial cuts on left wrist and shoulder, sts having experienced CAH for so long they don?t even bother him any more. Pt gave lengthy description of a conversation he had with his mother that made her cry, including the following:?I play an audio clip every night that helps prevent me from killing myself. I know someone who can sell me a gun. I have this audio clip of a girl asking why would you do this. She said her brother killed herself. I told my mom I know a whole bunch of ways to kill my self, walk into traffic, a gun, go into the attic and just jump from the 3rd floor. My mom tells me I?m successful but I don?t feel successful. I can?t keep a job. I feel so unsuccessful I can?t even kill myself. I can?t cut myself to bleed out completely. I can? even get hit by a car. That?s not everything.?When people feel bad for me, it makes me feel worse. I care for others more than I care for myself, it?s like therapy. My mom said she was sorry and it?s like guilt tripping, it makes me feel worse. When I talk about this kind of stuff I don?t even feel sad. It?s not even a big deal when I talk about it.?Pt presents A&O, INAD, pleasant and cooperative, sometimes distracted, appears depressed with congruent affect.??MedHx: Documentation sts DM; pt sts he takes metformin only for weight control, and does not have DM. ? Hypertension. VS at admission: 97.8, 72, 16, 140/77, 98%. PsycheHx: Major depressive disorder, single episode, severe. CAH, AH, SI, self-harm. One past OD on friend?s medication. Recently walked into traffic, cutting.
[2021-10-30 18:37] VITALS: BMI 41.1
[2021-10-30] MEDS: Acetaminophen 325 MG TABLET 650 MG PO (19:07)
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
[2021-10-30 19:40] VITALS: BP 162/92; PULSE 70; RESP 18; O2SAT 95
[2021-10-30] MEDS: cloNIDine HCL 0.1 MG TABLET PO (19:46)
[2021-10-30] MEDS: QUEtiapine Fumarate 300 MG TABLET 600 MG PO (20:50)
[2021-10-31 09:00] VITALS: BP 134/79; PULSE 65; RESP 16; TEMP 36.4; O2SAT 98
[2021-10-31 09:12] LABS: Estimated Average Glucose 105 mg/dL; Hemoglobin A1c % 5.3 %
[2021-10-31 09:20] LABS: Alanine Aminotransferase 37 U/L (0-40); Albumin Level 4.4 g/dL (3.5-5.0); Alkaline Phosphatase 96 U/L (39-117); Anion Gap 14 (12-20); Aspartate Amino Transferase 18 U/L (5-37); Bilirubin Total 0.4 mg/dL (0.0-1.0); Blood Urea Nitrogen 11 mg/dL (9-16); Calcium 9.5 mg/dL (8.4-10.2); Carbon Dioxide 23 mmol/L (22-29); Chloride 107 mmol/L (96-108); Cholesterol 191 mg/dL; Creatinine Clr Calc Pharmacy 138.6; Estimated Glomerular Filt Rate > 60; Glucose Fasting 102 mg/dL (60-99); HDL Cholesterol 32 mg/dL; LDL Cholesterol Calculated 134 mg/dl; Potassium 4.3 mmol/L (3.3-5.1); Sodium 140 mmol/L (135-145); Total Protein 7.3 g/dL (6.5-8.0); Triglycerides 126 mg/dL
[2021-10-31] MEDS: Lithium Carbonate 300 MG CAPSULE PO ×2 (09:31→20:31)
[2021-10-31] MEDS: metFORMIN HCl 500 MG TABLET PO ×2 (09:31→20:31)
[2021-10-31 09:42] LABS: Free T4 (Free Thyroxine) 0.91 ng/dL (0.71-1.85); Thyroid Stimulating Hormone 0.95 uIU/mL (0.32-4.0)
[2021-10-31 09:53] LABS: Folate 19.8 ng/mL (> or = 4.0); Vitamin B12 403 pg/mL (200-900)
--- NOTE | 2021-10-31 12:32 | P.PNPSI_ITS ---
Subjective Subjective Date of Service: 10/31/21 Reason For Visit: SI SELF HARM Subjective Notes: Conditional Voluntary Interim History: Pt reports hearing voices but this time telling him to hurt himself not others. He reports fair sleep. He reports clonidine helping with anxiety. He denies SI plan or intent... at least now, no Pt reports appetite as usual. Pt seen socialing with peers, appropriately, with bright, non labile affect, does not appear internally preoccupied with much brighter affect than reported mood. Medication Compliance: Yes Side effects from medications: No Review of Systems Review of Systems CVS: No c/o chest pain, palpitations, no SOB METAL RECLAMATION KETTLE TENDER: No c/o dizziness, headache GI: No c/o Nausea, Vomiting, diarrhea, constipation or heartburn Mental Status Exam Mental Status Exam Narrative: A&O. Overweight, casual attire. Good eye contact, attentive. No Tics or Tremors. Psychomotor agitation, legs shaking, no involuntary movements. Anxious but otherwise calm, cooperative. Non-pressured speech, spontaneous with regular rate and rhythm, normal volume and prosody. No prolonged speech latency or dysarthria. Mood is ?depressed,? affect is constricted. Endorses SI and urges to self harm but denies plan or intent, denies HI. Endorses CAH, denies VH or delusional thought content. Thoughts significant for negativity bias. No known cognitive or memory impairment. Insight/ Judgment limited. Diagnostics Vital Signs (24Hr): Vital Signs - 24 hr 10/31/21 09:00 10/31/21 19:20 Temperature 97.6 F Pulse Rate 65 89 Respiratory Rate 16 18 Blood Pressure 134/79 162/86 H Pulse Oximetry 98 96 Oxygen Delivery Method Room Air Room Air BMI result Body Mass Index 41.1 Labs Results: 10/30/21 11:37 10/31/21 08:22 Labs: Laboratory Results - last 48 hr 10/30/21 10/30/21 10/30/21 11:37 11:37 18:02 WBC 6.8 RBC 5.53 Hgb 14.6 Hct 42.9 MCV 77.6 L MCH 26.4 L MCHC 34.0 RDW 12.7 Plt Count 399 MPV 9.8 Absolute Nucleated RBC 0.000 Nucleated RBC % (auto) 0.0 Sodium 138 Potassium 4.6 Chloride 104 Carbon Dioxide 23 Anion Gap 16 BUN 15 Creatinine 1.11 Estim Creat Clear Calc 130.3 Estimated GFR > 60 Random Glucose 97 Fasting Glucose Estimat Average Glucose Hemoglobin A1c % Calcium 10.0 D Total Bilirubin 0.6 AST 23 ALT 44 H Alkaline Phosphatase 110 D Total Protein 8.5 H D Albumin 4.9 Triglycerides Cholesterol LDL Cholesterol, Calc HDL Cholesterol Vitamin B12 Folate TSH Free T4 [place] 0.22 L 10/31/21 10/31/21 10/31/21 08:22 08:22 08:22 WBC RBC Hgb Hct MCV MCH MCHC RDW Plt Count MPV Absolute Nucleated RBC Nucleated RBC % (auto) Sodium 140 Potassium 4.3 Chloride 107 Carbon Dioxide 23 Anion Gap 14 BUN 11 Creatinine 1.05 Estim Creat Clear Calc 138.6 Estimated GFR > 60 Random Glucose Fasting Glucose 102 H Estimat Average Glucose 105 Hemoglobin A1c % 5.3 Calcium 9.5 Total Bilirubin 0.4 AST 18 ALT 37 Alkaline Phosphatase 96 Total Protein 7.3 Albumin 4.4 Triglycerides 126 Cholesterol 191 D LDL Cholesterol, Calc 134 HDL Cholesterol 32 Vitamin B12 403 Folate 19.8 TSH 0.95 Free T4 0.91 [place] Medications Medications Current Medications Acetaminophen (Acetaminophen 325 Mg Tablet) 650 mg PO Q6H PRN PRN Reason: Headache/Pain Mild Scale (1-3) Last Admin: 10/31/21 14:30 Dose: 650 mg Al Hydroxide/Mg Hydroxide (Magnesium Hydrox/Alum Hydrox 30 Ml Oral.Susp) 30 ml PO Q6H PRN PRN Reason: Heartburn/Nausea Clonidine HCl (Clonidine Hcl 0.1 Mg Tablet) 0.1 mg PO TID PRN; Protocol PRN Reason: anxiety, hyperarousal Last Admin: 10/31/21 19:23 Dose: 0.1 mg Hydroxyzine HCl (Hydroxyzine Hcl 50 Mg Tablet) 50 mg PO DAILY PRN PRN Reason: Anxiety Last Admin: 10/30/21 11:12 Dose: 50 mg Hydroxyzine HCl (Hydroxyzine Hcl 25 Mg Tablet) 25 mg PO Q6H PRN PRN Reason: Anxiety [place] Carbonate ([place] Carbonate 300 Mg Capsule) 300 mg PO BID [facility] Last Admin: 10/31/21 20:31 Dose: 300 mg Magnesium Hydroxide (Milk Of Magnesia 30 Ml Oral.Susp) 30 ml PO DAILY PRN PRN Reason: Constipation Metformin HCl (Metformin Hcl 500 Mg Tablet) 500 mg PO BID [facility] Last Admin: 10/31/21 20:31 Dose: 500 mg Nicotine Polacrilex (Nicotine Polacrilex 2 Mg Gum) 4 mg BUCCAL Q2H PRN PRN Reason: Nicotine Cravings Quetiapine Fumarate (Quetiapine Fumarate 300 Mg Tablet) 600 mg PO BEDTIME CHRIS Last Admin: 10/31/21 20:31 Dose: 600 mg Quetiapine Fumarate (Quetiapine Fumarate 50 Mg Tablet) 50 mg PO TID PRN PRN Reason: AH, agitation, anxiety Last Admin: 10/31/21 17:57 Dose: 50 mg Trazodone HCl (Trazodone Hcl 50 Mg Tablet) 50 mg PO BEDTIME PRN PRN Reason: Insomnia Allergies Allergies Allergy/AdvReac Type Severity Reaction Status Date / Time No Known Allergies Allergy Verified 08/21/21 16:01 Assessment & Plan Assessment & Plan (1) Borderline personality disorder: Status: Acute Code(s): F60.3 - Borderline personality disorder (2) MDD (major depressive disorder), recurrent, severe, with psychosis: Status: Acute Code(s): F33.3 - Major depressive disorder, recurrent, severe with psychotic symptoms Plan Reality is a 21 y.o. Male who carries a dx of schizoaffective disorder, depressive type. Pt recently hospitalized on [facility] 08/21/21 due to depression, SI, CAH, and SIB. He was re-admitted to [facility] 09/10/21 due to intentional overdose, CAH. Hx of multiple psych admissions since 2014. Plan: [place] level is 0.22. May consider increasing lithium, as pt reported initial benefit. May also consider re-instating venlafaxine, as pt has worsening anxiety and sx of flashbacks, nightmares, perseverative thoughts since it was discontinued. Will start PRN clonidine 0.1 mg for hyperarousal, anxiety. Will start PRN seroquel 50 mg for agitation, anxiety, and pt says this helps with CAH. Q15 min safety checks, CV Monitor response to medications. Monitor for safety in the milieu. Discharge on stabilization. Patient seen. Chart reviewed. Discussed with team. Obtain collateral contact info as needed 10/31 continue current medications, affect much brighter than reported mood, does not appeared internally preoccupied, suspect more axis 2, than primarily mood disorder or true psychotic disorder. I spent _25 minutes with the patient and/or on the patient floor today, greater than?50% of which was spent counseling/coordinating care. Reason for contiued inpatient stay Substantial Risk for: harm to self and inability to function
[2021-10-31] MEDS: Acetaminophen 325 MG TABLET 650 MG PO (14:30)
[2021-10-31] MEDS: QUEtiapine Fumarate 50 MG TABLET PO (17:57)
[2021-10-31 19:20] VITALS: BP 162/86; PULSE 89; RESP 18; O2SAT 96
[2021-10-31] MEDS: cloNIDine HCL 0.1 MG TABLET PO (19:23)
[2021-10-31] MEDS: QUEtiapine Fumarate 300 MG TABLET 600 MG PO (20:31)
[2021-11-01] MEDS: metFORMIN HCl 500 MG TABLET PO ×2 (08:58→20:18)
[2021-11-01] MEDS: Lithium Carbonate 300 MG CAPSULE PO ×2 (08:58→20:18)
[2021-11-01 09:25] VITALS: BP 141/65; PULSE 69; RESP 16; TEMP 36.6; O2SAT 99
[2021-11-01] MEDS: cloNIDine HCL 0.1 MG TABLET PO (14:17)
[2021-11-01 18:00] VITALS: BP 124/58; PULSE 71; RESP 16; TEMP 36.7; O2SAT 100
[2021-11-01] MEDS: hydrOXYzine HCL 50 MG TABLET PO (20:18)
[2021-11-01] MEDS: QUEtiapine Fumarate 300 MG TABLET 600 MG PO (20:18)
--- NOTE | 2021-11-01 23:22 | P.PNPSI_ITS ---
Subjective Subjective Date of Service: 11/01/21 Reason For Visit: SI SELF HARM Interim History: Patient irritable dysphoric chronically intermittently suicidal discussed option to increase lithium Mental Status Exam Mental Status Exam Mood Description: Depressed, Anxious, Labile and Angry Affect Description: Depressed, Angry and Apprehensive Memory Description: Intact Hallucinations: Visual Thought Process: Rumination Diagnostics Vital Signs (24Hr): Vital Signs - 24 hr 11/01/21 09:25 11/01/21 18:00 Temperature 97.8 F 98.1 F Pulse Rate 69 71 Respiratory Rate 16 16 Blood Pressure 141/65 H 124/58 L Pulse Oximetry 99 100 Oxygen Delivery Method Room Air Room Air BMI result Body Mass Index 41.1 Labs Results: 10/30/21 11:37 10/31/21 08:22 Labs: Laboratory Results - last 48 hr 10/31/21 10/31/21 10/31/21 08:22 08:22 08:22 Sodium 140 Potassium 4.3 Chloride 107 Carbon Dioxide 23 Anion Gap 14 BUN 11 Creatinine 1.05 Estim Creat Clear Calc 138.6 Estimated GFR > 60 Fasting Glucose 102 H Estimat Average Glucose 105 Hemoglobin A1c % 5.3 Calcium 9.5 Total Bilirubin 0.4 AST 18 ALT 37 Alkaline Phosphatase 96 Total Protein 7.3 Albumin 4.4 Triglycerides 126 Cholesterol 191 D LDL Cholesterol, Calc 134 HDL Cholesterol 32 Vitamin B12 403 Folate 19.8 TSH 0.95 Free T4 0.91 Medications Medications Current Medications Acetaminophen (Acetaminophen 325 Mg Tablet) 650 mg PO Q6H PRN PRN Reason: Headache/Pain Mild Scale (1-3) Last Admin: 10/31/21 14:30 Dose: 650 mg Al Hydroxide/Mg Hydroxide (Magnesium Hydrox/Alum Hydrox 30 Ml Oral.Susp) 30 ml PO Q6H PRN PRN Reason: Heartburn/Nausea Clonidine HCl (Clonidine Hcl 0.1 Mg Tablet) 0.1 mg PO TID PRN; Protocol PRN Reason: anxiety, hyperarousal Last Admin: 11/01/21 14:17 Dose: 0.1 mg Hydroxyzine HCl (Hydroxyzine Hcl 50 Mg Tablet) 50 mg PO DAILY PRN PRN Reason: Anxiety Last Admin: 11/01/21 20:18 Dose: 50 mg Hydroxyzine HCl (Hydroxyzine Hcl 25 Mg Tablet) 25 mg PO Q6H PRN PRN Reason: Anxiety [place] Carbonate ([place] Carbonate 300 Mg Capsule) 300 mg PO BID [facility] Last Admin: 11/01/21 20:18 Dose: 300 mg Magnesium Hydroxide (Milk Of Magnesia 30 Ml Oral.Susp) 30 ml PO DAILY PRN PRN Reason: Constipation Metformin HCl (Metformin Hcl 500 Mg Tablet) 500 mg PO BID [facility] Last Admin: 11/01/21 20:18 Dose: 500 mg Nicotine Polacrilex (Nicotine Polacrilex 2 Mg Gum) 4 mg BUCCAL Q2H PRN PRN Reason: Nicotine Cravings Quetiapine Fumarate (Quetiapine Fumarate 300 Mg Tablet) 600 mg PO BEDTIME [facility] Last Admin: 11/01/21 20:18 Dose: 600 mg Quetiapine Fumarate (Quetiapine Fumarate 50 Mg Tablet) 50 mg PO TID PRN PRN Reason: AH, agitation, anxiety Last Admin: 10/31/21 17:57 Dose: 50 mg Trazodone HCl (Trazodone Hcl 50 Mg Tablet) 50 mg PO BEDTIME PRN PRN Reason: Insomnia Allergies Allergies Allergy/AdvReac Type Severity Reaction Status Date / Time No Known Allergies Allergy Verified 08/21/21 16:01 Assessment & Plan Assessment & Plan (1) Borderline personality disorder: Status: Acute Code(s): F60.3 - Borderline personality disorder (2) MDD (major depressive disorder), recurrent, severe, with psychosis: Status: Acute Code(s): F33.3 - Major depressive disorder, recurrent, severe with psychotic symptoms Plan Reality is a 21 y.o. Male who carries a dx of schizoaffective disorder, depressive type. Pt recently hospitalized on [facility] 08/21/21 due to depression, SI, CAH, and SIB. He was [facility] 09/10/21 due to intentional overdose, CAH. Hx of multiple psych admissions since 2014. Plan: [place] level is 0.22. May consider increasing lithium, as pt reported initial benefit. May also consider re-instating venlafaxine, as pt has worsening anxiety and sx of flashbacks, nightmares, perseverative thoughts since it was discontinued. Will start PRN clonidine 0.1 mg for hyperarousal, anxiety. Will start PRN seroquel 50 mg for agitation, anxiety, and pt says this helps with CAH. Q15 min safety checks, CV Monitor response to medications. Monitor for safety in the milieu. Discharge on stabilization. Patient seen. Chart reviewed. Discussed with team. Obtain collateral contact info as needed 10/31 continue current medications, affect much brighter than reported mood, does not appeared internally preoccupied, suspect more axis 2, than primarily mood disorder or true psychotic disorder. 11/01/2021 Patient irritable dysphoric and reactive. Consider increase lithium I spent minutes with the patient and/or on the patient floor today, greater than?50% of which was spent counseling/coordinating care. Reason for contiued inpatient stay Substantial Risk for: harm to self and rapid decompensation
[2021-11-02 06:00] VITALS: BP 129/66; PULSE 74; RESP 18; TEMP 36.3; O2SAT 98
[2021-11-02] MEDS: metFORMIN HCl 500 MG TABLET PO ×2 (09:08→19:49)
[2021-11-02] MEDS: Lithium Carbonate 300 MG CAPSULE PO ×2 (09:08→19:49)
[2021-11-02] MEDS: Acetaminophen 325 MG TABLET 650 MG PO (09:11)
[2021-11-02] MEDS: QUEtiapine Fumarate 50 MG TABLET PO ×2 (13:36→21:21)
[2021-11-02] MEDS: cloNIDine HCL 0.1 MG TABLET PO ×2 (13:36→21:48)
--- NOTE | 2021-11-02 17:22 | PC.NURSE ---
Pt reported he had engaged in self-harming bx, and superfically cut the top of his left hand with the nose piece of his facemask. Upon assessment, pt had several superfical crisscrossing cuts on top of lefty hand, and did not appear fresh or open, and appeared healed over. Pt reports that he had done this several hours ago because he resorted to doing what he knows in order to not be stuck in his head . All face masks removed from pt's room. Will continue to monitor.
[2021-11-02] MEDS: QUEtiapine Fumarate 300 MG TABLET 600 MG PO (19:49)
[2021-11-02] MEDS: traZODone HCL 50 MG TABLET PO ×2 (21:21→22:33)
[2021-11-02 21:26] VITALS: RESP 16
[2021-11-02 21:48] VITALS: BP 148/80; PULSE 71
[2021-11-02] MEDS: hydrOXYzine HCL 50 MG TABLET PO (21:48)
[2021-11-02] MEDS: hydrOXYzine HCL 25 MG TABLET PO (22:33)
--- NOTE | 2021-11-02 23:53 | HO.PSYCHPN ---
Subjective Subjective Date of Service: 11/02/21 Reason For Visit: SI SELF HARM Interim History: Patient withdrawn irritable dysphoric somewhat provocative interaction at times. Talking about self-harm Mental Status Exam Mental Status Exam Narrative: A&O. Overweight, casual attire. Good eye contact, attentive. No Tics or Tremors. no PMA/PMR. calm, cooperative. Non-pressured speech, spontaneous with regular rate and rhythm, normal volume and prosody. No prolonged speech latency or dysarthria. Mood is ?sad,? affect is constricted. Endorses SI and urges to self harm but denies plan or intent, denies HI. Endorses CAH, denies VH or delusional thought content. No known cognitive or memory impairment. Insight/ Judgment limited. Diagnostics Vital Signs (24Hr): Vital Signs - 24 hr 11/02/21 06:00 11/02/21 21:26 11/02/21 21:48 Temperature 97.3 F Pulse Rate 74 71 Respiratory Rate 18 16 Blood Pressure 129/66 148/80 H Pulse Oximetry 98 Oxygen Delivery Method Room Air BMI result Body Mass Index 41.1 Labs Results: 10/30/21 11:37 10/31/21 08:22 Medications Medications Current Medications Acetaminophen (Acetaminophen 325 Mg Tablet) 650 mg PO Q6H PRN PRN Reason: Headache/Pain Mild Scale (1-3) Last Admin: 11/02/21 09:11 Dose: 650 mg Al Hydroxide/Mg Hydroxide (Magnesium Hydrox/Alum Hydrox 30 Ml Oral.Susp) 30 ml PO Q6H PRN PRN Reason: Heartburn/Nausea Clonidine HCl (Clonidine Hcl 0.1 Mg Tablet) 0.1 mg PO TID PRN; Protocol PRN Reason: anxiety, hyperarousal Last Admin: 11/02/21 21:48 Dose: 0.1 mg Hydroxyzine HCl (Hydroxyzine Hcl 50 Mg Tablet) 50 mg PO DAILY PRN PRN Reason: Anxiety Last Admin: 11/02/21 21:48 Dose: 50 mg Hydroxyzine HCl (Hydroxyzine Hcl 25 Mg Tablet) 25 mg PO Q6H PRN PRN Reason: Anxiety Last Admin: 11/02/21 22:33 Dose: 25 mg [place] Carbonate ([place] Carbonate 300 Mg Capsule) 300 mg PO BID CHRIS Last Admin: 11/02/21 19:49 Dose: 300 mg Magnesium Hydroxide (Milk Of Magnesia 30 Ml Oral.Susp) 30 ml PO DAILY PRN PRN Reason: Constipation Metformin HCl (Metformin Hcl 500 Mg Tablet) 500 mg PO BID CHRIS Last Admin: 11/02/21 19:49 Dose: 500 mg Nicotine Polacrilex (Nicotine Polacrilex 2 Mg Gum) 4 mg BUCCAL Q2H PRN PRN Reason: Nicotine Cravings Quetiapine Fumarate (Quetiapine Fumarate 300 Mg Tablet) 600 mg PO BEDTIME CHRIS Last Admin: 11/02/21 19:49 Dose: 600 mg Quetiapine Fumarate (Quetiapine Fumarate 50 Mg Tablet) 50 mg PO TID PRN PRN Reason: AH, agitation, anxiety Last Admin: 11/02/21 21:21 Dose: 50 mg Trazodone HCl (Trazodone Hcl 50 Mg Tablet) 50 mg PO BEDTIME PRN PRN Reason: Insomnia Last Admin: 11/02/21 22:33 Dose: 50 mg Allergies Allergies Allergy/AdvReac Type Severity Reaction Status Date / Time No Known Allergies Allergy Verified 08/21/21 16:01 Assessment & Plan Assessment & Plan (1) Schizoaffective disorder, depressive type: Status: Acute Code(s): F25.1 - Schizoaffective disorder, depressive type (2) Borderline personality disorder: Status: Acute Code(s): F60.3 - Borderline personality disorder Plan Reality is a 21 y.o. Male who carries a dx of schizoaffective disorder, depressive type. Pt recently hospitalized on [facility] M[facility] 08/21/21 due to depression, SI, CAH, and SIB. He was re-admitted to [facility] 09/10/21 due to intentional overdose, CAH. Hx of multiple psych admissions since 2014. Plan: [place] level is 0.22. May consider increasing lithium, as pt reported initial benefit. May also consider re-instating venlafaxine, as pt has worsening anxiety and sx of flashbacks, nightmares, perseverative thoughts since it was discontinued. Will start PRN clonidine 0.1 mg for hyperarousal, anxiety. Will start PRN seroquel 50 mg for agitation, anxiety, and pt says this helps with CAH. Q15 min safety checks, CV Monitor response to medications. Monitor for safety in the milieu. Discharge on stabilization. Patient seen. Chart reviewed. Discussed with team. Obtain collateral contact info as needed 11/02/2021 Patient seen in psychiatric follow-up patient's mood irritable dysphoric I spent minutes with the patient and/or on the patient floor today, greater than?50% of which was spent counseling/coordinating care. Reason for contiued inpatient stay Substantial Risk for: harm to self
[2021-11-03 08:35] VITALS: BP 121/58; PULSE 68; RESP 20; TEMP 36.6; O2SAT 98
[2021-11-03] MEDS: metFORMIN HCl 500 MG TABLET PO ×2 (08:56→21:10)
--- NOTE | 2021-11-03 15:16 | P.PNPSI_ITS ---
Subjective Subjective Date of Service: 11/03/21 Reason For Visit: SI SELF HARM Interim History: pt reports he would like most to work on his depression, then anxiety, and then CAH/paranoia. feels his seroquel PRNs have not been terribly affective, agrees to try 100 mg each rather than the 50 mg each he currently has. in addition, he agrees to add scheduled trazodone 100 mg at HS for sleep - he got a PRN of 50 mg last night. feeling sad. last SIBI was last night, last SI same. per staff, pt states he is not sure if he is safe due to continued SI/SIBI. poor sleep. reported trying to self-harm with metal nose bridge from face mask. got PRN seroquel, trazodone, clonidine, hydroxyzine last night. slept after 1130 pm. Mental Status Exam Mental Status Exam Narrative: A&O. Overweight, casual attire. Good eye contact, attentive. No Tics or Tremors. no PMA/PMR. calm, cooperative. Non-pressured speech, spontaneous with regular rate and rhythm, normal volume and prosody. No prolonged speech latency or dysarthria. Mood is ?sad,? affect is constricted. Endorses SI and urges to self harm but denies plan or intent, denies HI. Endorses CAH, denies VH or delusional thought content. No known cognitive or memory impairment. Insight/ Judgment limited. Diagnostics Vital Signs (24Hr): Vital Signs - 24 hr 11/02/21 21:26 11/02/21 21:48 11/03/21 08:35 Temperature 97.9 F Pulse Rate 71 68 Respiratory Rate 16 20 Blood Pressure 148/80 H 121/58 L Pulse Oximetry 98 Oxygen Delivery Method Room Air BMI result Body Mass Index 41.1 Labs Results: 10/30/21 11:37 10/31/21 08:22 Medications Medications Current Medications Acetaminophen (Acetaminophen 325 Mg Tablet) 650 mg PO Q6H PRN PRN Reason: Headache/Pain Mild Scale (1-3) Last Admin: 11/02/21 09:11 Dose: 650 mg Al Hydroxide/Mg Hydroxide (Magnesium Hydrox/Alum Hydrox 30 Ml Oral.Susp) 30 ml PO Q6H PRN PRN Reason: Heartburn/Nausea Clonidine HCl (Clonidine Hcl 0.1 Mg Tablet) 0.1 mg PO TID PRN; Protocol PRN Reason: anxiety, hyperarousal Last Admin: 11/02/21 21:48 Dose: 0.1 mg Hydroxyzine HCl (Hydroxyzine Hcl 50 Mg Tablet) 50 mg PO DAILY PRN PRN Reason: Anxiety Last Admin: 11/02/21 21:48 Dose: 50 mg Hydroxyzine HCl (Hydroxyzine Hcl 25 Mg Tablet) 25 mg PO Q6H PRN PRN Reason: Anxiety Last Admin: 11/02/21 22:33 Dose: 25 mg [place] Carbonate ([place] Carbonate 300 Mg Tablet) 450 mg PO BID [facility] Last Admin: 11/03/21 08:59 Dose: Not Given Magnesium Hydroxide (Milk Of Magnesia 30 Ml Oral.Susp) 30 ml PO DAILY PRN PRN Reason: Constipation Metformin HCl (Metformin Hcl 500 Mg Tablet) 500 mg PO BID [facility] Last Admin: 11/03/21 08:56 Dose: 500 mg Nicotine Polacrilex (Nicotine Polacrilex 2 Mg Gum) 4 mg BUCCAL Q2H PRN PRN Reason: Nicotine Cravings Quetiapine Fumarate (Quetiapine Fumarate 300 Mg Tablet) 600 mg PO BEDTIME [facility] Last Admin: 11/02/21 19:49 Dose: 600 mg Quetiapine Fumarate (Quetiapine Fumarate 100 Mg Tablet) 100 mg PO TID PRN PRN Reason: AH, agitation, anxiety Trazodone HCl (Trazodone Hcl 50 Mg Tablet) 50 mg PO BEDTIME PRN PRN Reason: Insomnia Last Admin: 11/02/21 22:33 Dose: 50 mg Trazodone HCl (Trazodone Hcl 100 Mg Tablet) 100 mg PO BEDTIME [facility] Allergies Allergies Allergy/AdvReac Type Severity Reaction Status Date / Time No Known Allergies Allergy Verified 08/21/21 16:01 Assessment & Plan Assessment & Plan (1) Schizoaffective disorder, depressive type: Status: Acute Code(s): F25.1 - Schizoaffective disorder, depressive type (2) Borderline personality disorder: Status: Acute Code(s): F60.3 - Borderline personality disorder Plan Reality is a 21 y.o. Male who carries a dx of schizoaffective disorder, depre ssive type. Pt recently hospitalized on [facility] 08/21/21 due to depression, SI, CAH, and SIB. He was re-admitted to [facility] 09/10/21 due to intentional overdose, CAH. Hx of multiple psych admissions since 2014. Plan: [place] level is 0.22. May consider increasing lithium, as pt reported initial benefit. May also consider re-instating venlafaxine, as pt has worsening anxiety and sx of flashbacks, nightmares, perseverative thoughts since it was discontinued. Will start PRN clonidine 0.1 mg for hyperarousal, anxiety. Will start PRN seroquel 50 mg for agitation, anxiety, and pt says this helps with C AH. Q15 min safety checks, CV Monitor response to medications. Monitor for safety in the milieu. Discharge on stabilization. Patient seen. Chart reviewed. Discussed with team. Obtain collateral contact info as needed 912: increase seroquel PRNs to 100 mg each as pt reports 50 mg each ineffective. schedule trazodone 100 mg at HS for insomnia. I spent ___25___ minutes with the patient and/or on the patient floor today, greater than?50% of which was spent counseling/coordinating care. Reason for contiued inpatient stay Substantial Risk for: harm to self, inability to function and rapid decompen sation
[2021-11-03] MEDS: QUEtiapine Fumarate 100 MG TABLET PO ×2 (16:59→21:55)
[2021-11-03 20:57] VITALS: BP 144/76; PULSE 88; RESP 18; TEMP 36.7; O2SAT 98
[2021-11-03] MEDS: Lithium Carbonate 300 MG TABLET 450 MG PO (21:10)
[2021-11-03] MEDS: QUEtiapine Fumarate 300 MG TABLET 600 MG PO (21:10)
[2021-11-03] MEDS: cloNIDine HCL 0.1 MG TABLET PO (21:10)
[2021-11-03] MEDS: hydrOXYzine HCL 50 MG TABLET PO (21:55)
[2021-11-03] MEDS: hydrOXYzine HCL 25 MG TABLET PO (22:53)
[2021-11-03] MEDS: traZODone HCL 100 MG TABLET PO (22:53)
[2021-11-04 08:20] VITALS: BP 127/70; PULSE 70; RESP 18; TEMP 36.6; O2SAT 99
[2021-11-04] MEDS: Lithium Carbonate 300 MG TABLET 450 MG PO ×2 (08:39→21:11)
[2021-11-04] MEDS: metFORMIN HCl 500 MG TABLET PO ×2 (08:39→21:13)
[2021-11-04 11:20] VITALS: BP 135/66; PULSE 84; RESP 18; O2SAT 95
[2021-11-04] MEDS: hydrOXYzine HCL 25 MG TABLET PO (11:21)
[2021-11-04] MEDS: cloNIDine HCL 0.1 MG TABLET PO (11:21)
--- NOTE | 2021-11-04 15:46 | HO.PSYCHPN ---
Subjective Subjective Date of Service: 11/04/21 Reason For Visit: SI SELF HARM Interim History: irritable, flippant, provocative. seen with SW. expressed frustration with having to repeat himself to treaters, got up and left the interview after complaining and making sarcastic statements for the bulk of the interview. difficult to engage with. pt c/o ongoing insomnia. per staff, denied anxiety yesterday morning. some depression. not attending groups. isolative. anxious on eves. no SIBI eves. later scratched self with metal from nasal bridge of face mask. ambivalent re safety in the hospital. Mental Status Exam Mental Status Exam Narrative: A&O. Overweight, casual attire. Good eye contact, attentive. No Tics or Tremors. no PMA/PMR. mildly agitated, not terribly cooperative. Non-pressured speech, spontaneous with increased amount and rate, decreased latency. normal loudness and prosody. Mood not assessed. affect is constricted, hyper-intense, non-labile. no SI/HI/AVH expressed. No known cognitive or memory impairment. Insight/ Judgment limited. Diagnostics Vital Signs (24Hr): Vital Signs - 24 hr 11/03/21 20:57 11/04/21 08:20 11/04/21 11:20 Temperature 98.1 F 97.9 F Pulse Rate 88 70 84 Respiratory Rate 18 18 18 Blood Pressure 144/76 H 127/70 135/66 Pulse Oximetry 98 99 95 Oxygen Delivery Method Room Air Room Air Room Air BMI result Body Mass Index 41.1 Labs Results: 10/30/21 11:37 10/31/21 08:22 Medications Medications Current Medications Acetaminophen (Acetaminophen 325 Mg Tablet) 650 mg PO Q6H PRN PRN Reason: Headache/Pain Mild Scale (1-3) Last Admin: 11/02/21 09:11 Dose: 650 mg Al Hydroxide/Mg Hydroxide (Magnesium Hydrox/Alum Hydrox 30 Ml Oral.Susp) 30 ml PO Q6H PRN PRN Reason: Heartburn/Nausea Clonidine HCl (Clonidine Hcl 0.1 Mg Tablet) 0.1 mg PO TID PRN; Protocol PRN Reason: anxiety, hyperarousal Last Admin: 11/04/21 11:21 Dose: 0.1 mg Clonidine HCl (Clonidine Hcl 0.2 Mg Tablet) 0.2 mg PO BEDTIME CHRIS; Protocol Hydroxyzine HCl (Hydroxyzine Hcl 50 Mg Tablet) 50 mg PO DAILY PRN PRN Reason: Anxiety Last Admin: 11/03/21 21:55 Dose: 50 mg Hydroxyzine HCl (Hydroxyzine Hcl 25 Mg Tablet) 25 mg PO Q6H PRN PRN Reason: Anxiety Last Admin: 11/04/21 11:21 Dose: 25 mg [place] Carbonate ([place] Carbonate 300 Mg Tablet) 450 mg PO BID COUNTS INCLUDE 234 BEDS AT [facility] Last Admin: 11/04/21 08:39 Dose: 450 mg Magnesium Hydroxide (Milk Of Magnesia 30 Ml Oral.Susp) 30 ml PO DAILY PRN PRN Reason: Constipation Metformin HCl (Metformin Hcl 500 Mg Tablet) 500 mg PO BID COUNTS INCLUDE 234 BEDS AT [facility] Last Admin: 11/04/21 08:39 Dose: 500 mg Nicotine Polacrilex (Nicotine Polacrilex 2 Mg Gum) 4 mg BUCCAL Q2H PRN PRN Reason: Nicotine Cravings Quetiapine Fumarate (Quetiapine Fumarate 300 Mg Tablet) 600 mg PO BEDTIME COUNTS INCLUDE 234 BEDS AT [facility] Last Admin: 11/03/21 21:10 Dose: 600 mg Quetiapine Fumarate (Quetiapine Fumarate 100 Mg Tablet) 100 mg PO TID PRN PRN Reason: AH, agitation, anxiety Last Admin: 11/03/21 21:55 Dose: 100 mg Trazodone HCl (Trazodone Hcl 50 Mg Tablet) 50 mg PO BEDTIME PRN PRN Reason: Insomnia Last Admin: 11/02/21 22:33 Dose: 50 mg Trazodone HCl (Trazodone Hcl 100 Mg Tablet) 100 mg PO BEDTIME CHRIS Last Admin: 11/03/21 22:53 Dose: 100 mg Allergies Allergies Allergy/AdvReac Type Severity Reaction Status Date / Time No Known Allergies Allergy Verified 08/21/21 16:01 Assessment & Plan Assessment & Plan (1) Schizoaffective disorder, depressive type: Status: Acute Code(s): F25.1 - Schizoaffective disorder, depressive type (2) Borderline personality disorder: Status: Acute Code(s): F60.3 - Borderline personality disorder Plan Reality is a 21 y.o. Male who carries a dx of schizoaffective disorder, depressive type. Pt recently hospitalized on [facility] M[facility] 08/21/21 due to depression, SI, CAH, and SIB. He was re-admitted to [facility] 09/10/21 due to intentional overdose, CAH. Hx of multiple psych admissions since 2014. Plan: [place] level is 0.22. May consider increasing lithium, as pt reported initial benefit. May also consider re-instating venlafaxine, as pt has worsening anxiety and sx of flashbacks, nightmares, perseverative thoughts since it was discontinued. Will start PRN clonidine 0.1 mg for hyperarousal, anxiety. Will start PRN seroquel 50 mg for agitation, anxiety, and pt says this helps with CAH. Q15 min safety checks, CV Monitor response to medications. Monitor for safety in the milieu. Discharge on stabilization. Patient seen. Chart reviewed. Discussed with team. Obtain collateral contact info as needed 11/02/2021 Patient seen in psychiatric follow-up patient's mood irritable dysphoric 11/03: increase seroquel PRNs to 100 mg each as pt reports 50 mg each ineffective.? schedule trazodone 100 mg at HS for insomnia. 11/04: irritable, flippant, dismissive. scheduled clonidine 0.2 mg at HS. pt reporting nightmares of his dying. I spent ___25___ minutes with the patient and/or on the patient floor today, greater than?50% of which was spent counseling/coordinating care. Reason for contiued inpatient stay Substantial Risk for: harm to self, inability to function and rapid decompensation
[2021-11-04] MEDS: Calcium Carbonate 750 MG TAB.CHEW PO (18:09)
[2021-11-04] MEDS: Magnesium Hydrox/Alum Hydrox 30 ML ORAL.SUSP PO (18:59)
[2021-11-04 20:45] VITALS: BP 137/66; PULSE 93; RESP 18; TEMP 36.3; O2SAT 98
[2021-11-04] MEDS: QUEtiapine Fumarate 300 MG TABLET 600 MG PO (21:12)
[2021-11-04] MEDS: cloNIDine HCL 0.2 MG TABLET PO (21:12)
[2021-11-04] MEDS: traZODone HCL 100 MG TABLET PO (21:12)
[2021-11-04] MEDS: traZODone HCL 50 MG TABLET PO (21:51)
[2021-11-04] MEDS: QUEtiapine Fumarate 100 MG TABLET PO (21:51)
[2021-11-05 08:15] VITALS: BP 119/55; PULSE 74; RESP 18; TEMP 36.4; O2SAT 98
[2021-11-05] MEDS: Lithium Carbonate 300 MG TABLET 450 MG PO ×2 (08:23→20:12)
[2021-11-05] MEDS: metFORMIN HCl 500 MG TABLET PO ×2 (08:23→20:13)
--- NOTE | 2021-11-05 12:58 | P.PNPSI_ITS ---
Subjective Subjective Date of Service: 11/05/21 Reason For Visit: SI SELF HARM Interim History: calm, cooperative. slept better last night but still had nightmares. educated re clonidine use, agreed to increase HS dose to 0.3 mg. also agreed to increase trazodone to 150 mg at HS for insomnia. reports his mood is a lot better today than yesterday. per staff, pt signed a 3-day notice. anxious, flat, visible, no SI/HI. pacing, playing board games. no AVH. had PRNs at HS. went to bed, slept OK. Mental Status Exam Mental Status Exam Narrative: A&O. Overweight, casual attire. Good eye contact, attentive. No Tics or Tremors. no PMA/PMR. calm and cooperative. Non-pressured speech, spontaneous with nml amount and rate, latency. normal loudness and prosody. Mood better than yesterday. affect is flexible, normo-intense, non-labile. no SI/HI/AVH expressed. No known cognitive or memory impairment. Insight/ Judgment limited. Diagnostics Vital Signs (24Hr): Vital Signs - 24 hr 11/04/21 20:45 11/05/21 08:15 Temperature 97.4 F 97.5 F Pulse Rate 93 74 Respiratory Rate 18 18 Blood Pressure 137/66 119/55 L Pulse Oximetry 98 98 Oxygen Delivery Method Room Air Room Air BMI result Body Mass Index 41.1 Labs Results: 10/30/21 11:37 10/31/21 08:22 Medications Medications Current Medications Acetaminophen (Acetaminophen 325 Mg Tablet) 650 mg PO Q6H PRN PRN Reason: Headache/Pain Mild Scale (1-3) Last Admin: 11/02/21 09:11 Dose: 650 mg Al Hydroxide/Mg Hydroxide (Magnesium Hydrox/Alum Hydrox 30 Ml Oral.Susp) 30 ml PO Q6H PRN PRN Reason: Heartburn/Nausea Last Admin: 11/04/21 18:59 Dose: 30 ml [place] Carbonate (Calcium Carbonate 750 Mg Tab.Chew) 750 mg PO Q6H PRN PRN Reason: GI upset Last Admin: 11/04/21 18:09 Dose: 750 mg Clonidine HCl (Clonidine Hcl 0.1 Mg Tablet) 0.1 mg PO TID PRN; Protocol PRN Reason: anxiety, hyperarousal Last Admin: 11/04/21 11:21 Dose: 0.1 mg Clonidine HCl (Clonidine Hcl 0.1 Mg Tablet) 0.3 mg PO BEDTIME CHRIS; Protocol Hydroxyzine HCl (Hydroxyzine Hcl 50 Mg Tablet) 50 mg PO DAILY PRN PRN Reason: Anxiety Last Admin: 11/03/21 21:55 Dose: 50 mg Hydroxyzine HCl (Hydroxyzine Hcl 25 Mg Tablet) 25 mg PO Q6H PRN PRN Reason: Anxiety Last Admin: 11/04/21 11:21 Dose: 25 mg [place] Carbonate ([place] Carbonate 300 Mg Tablet) 450 mg PO BID CHRIS Last Admin: 11/05/21 08:23 Dose: 450 mg Magnesium Hydroxide (Milk Of Magnesia 30 Ml Oral.Susp) 30 ml PO DAILY PRN PRN Reason: Constipation Metformin HCl (Metformin Hcl 500 Mg Tablet) 500 mg PO BID CHRIS Last Admin: 11/05/21 08:23 Dose: 500 mg Nicotine Polacrilex (Nicotine Polacrilex 2 Mg Gum) 4 mg BUCCAL Q2H PRN PRN Reason: Nicotine Cravings Quetiapine Fumarate (Quetiapine Fumarate 300 Mg Tablet) 600 mg PO BEDTIME CHRIS Last Admin: 11/04/21 21:12 Dose: 600 mg Quetiapine Fumarate (Quetiapine Fumarate 100 Mg Tablet) 100 mg PO TID PRN PRN Reason: AH, agitation, anxiety Last Admin: 11/04/21 21:51 Dose: 100 mg Trazodone HCl (Trazodone Hcl 50 Mg Tablet) 50 mg PO BEDTIME PRN PRN Reason: Insomnia Last Admin: 11/04/21 21:51 Dose: 50 mg Trazodone HCl (Trazodone Hcl 50 Mg Tablet) 150 mg PO BEDTIME [facility] Allergies Allergies Allergy/AdvReac Type Severity Reaction Status Date / Time No Known Allergies Allergy Verified 08/21/21 16:01 Assessment & Plan Assessment & Plan (1) Schizoaffective disorder, depressive type: Status: Acute Code(s): F25.1 - Schizoaffective disorder, depressive type (2) Borderline personality disorder: Status: Acute Code(s): F60.3 - Borderline personality disorder Plan Reality is a 21 y.o. Male who carries a dx of schizoaffective disorder, depressive type. Pt recently hospitalized on [facility] M[facility] 08/21/21 due to depression, SI, CAH, and SIB. He was re-admitted to [facility] 09/10/21 due to intentional overdose, CAH. Hx of multiple psych admissions since 2014. Plan: [place] level is 0.22. May consider increasing lithium, as pt reported initial benefit. May also consider re-instating venlafaxine, as pt has worsening anxiety and sx of flashbacks, nightmares, perseverative thoughts since it was discontinued. Will start PRN clonidine 0.1 mg for hyperarousal, anxiety. Will start PRN seroquel 50 mg for agitation, anxiety, and pt says this helps with CAH. Q15 min safety checks, CV Monitor response to medications. Monitor for safety in the milieu. Discharge on stabilization. Patient seen. Chart reviewed. Discussed with team. Obtain collateral contact info as needed 11/02/2021 Patient seen in psychiatric follow-up patient's mood irritable dysphoric 11/03: increase seroquel PRNs to 100 mg each as pt reports 50 mg each ineffective.? schedule trazodone 100 mg at HS for insomnia. 11/04: irritable, flippant, dismissive. scheduled clonidine 0.2 mg at HS. pt reporting nightmares of his dying. 11/05: calm and cooperative once again. slept better but still nightmares. increase clonidine to 0.3 at HS and trazodone to 150. submitted 3-day notice. I spent ___25___ minutes with the patient and/or on the patient floor today, greater than?50% of which was spent counseling/coordinating care. Reason for contiued inpatient stay Substantial Risk for: harm to self, inability to function and rapid decompensation
[2021-11-05] MEDS: Magnesium Hydrox/Alum Hydrox 30 ML ORAL.SUSP PO (13:27)
[2021-11-05] MEDS: cloNIDine HCL 0.1 MG TABLET PO (17:39)
[2021-11-05 20:05] VITALS: BP 133/87; PULSE 91; RESP 18; TEMP 36.4; O2SAT 97
[2021-11-05] MEDS: traZODone HCL 50 MG TABLET 150 MG PO (20:12)
[2021-11-05] MEDS: QUEtiapine Fumarate 300 MG TABLET 600 MG PO (20:13)
[2021-11-05] MEDS: cloNIDine HCL 0.1 MG TABLET 0.3 MG PO (20:14)
[2021-11-06] VITALS (7 sets, daily range): BP systolic 116–138; BP diastolic 60–76; PULSE 76–88; RESP 14–16; TEMP 36.4–36.7; O2SAT 96–99; BMI 41.4
[2021-11-06] MEDS: Lithium Carbonate 300 MG TABLET 450 MG PO ×2 (08:37→21:06)
[2021-11-06] MEDS: metFORMIN HCl 500 MG TABLET PO ×2 (08:38→21:07)
[2021-11-06] MEDS: QUEtiapine Fumarate 100 MG TABLET PO ×2 (09:03→22:25)
[2021-11-06] MEDS: cloNIDine HCL 0.1 MG TABLET PO ×2 (09:03→18:36)
--- NOTE | 2021-11-06 13:51 | HO.PSYCHPN ---
Subjective Subjective Date of Service: 11/06/21 Reason For Visit: SI SELF HARM Interim History: continues improved mood. just c/o being annoyed by his mother on the phone today. describes her as a trigger. he states she tries to help him but her help is what she wants to do rather than what he is asking for. feeling chill, doesn't want any med changes. slept well last night with increased clonidine dose. would like to remain until wednesday to assure his gains are stable. per staff, denies anxiety. low depression. chill. no SI/HI/AVH. OK appetite. dep 2. social. slept. Mental Status Exam Mental Status Exam Narrative: A&O. Overweight, casual attire. Good eye contact, attentive. No Tics or Tremors. no PMA/PMR. calm and cooperative. Non-pressured speech, spontaneous with nml amount and rate, latency. normal loudness and prosody. Mood chill. affect is flexible, normo-intense, non-labile. no SI/HI/AVH expressed. No known cognitive or memory impairment. Insight/ Judgment limited. Diagnostics Vital Signs (24Hr): Vital Signs - 24 hr 11/05/21 20:05 11/06/21 08:17 Temperature 97.6 F 97.6 F Pulse Rate 91 76 Respiratory Rate 18 16 Blood Pressure 133/87 134/76 Pulse Oximetry 97 99 Oxygen Delivery Method Room Air Room Air BMI result Body Mass Index 41.4 Labs Results: 10/30/21 11:37 10/31/21 08:22 Medications Medications Current Medications Acetaminophen (Acetaminophen 325 Mg Tablet) 650 mg PO Q6H PRN PRN Reason: Headache/Pain Mild Scale (1-3) Last Admin: 11/02/21 09:11 Dose: 650 mg Al Hydroxide/Mg Hydroxide (Magnesium Hydrox/Alum Hydrox 30 Ml Oral.Susp) 30 ml PO Q6H PRN PRN Reason: Heartburn/Nausea Last Admin: 11/05/21 13:27 Dose: 30 ml Calcium Carbonate (Calcium Carbonate 750 Mg Tab.Chew) 750 mg PO Q6H PRN PRN Reason: GI upset Last Admin: 11/04/21 18:09 Dose: 750 mg Clonidine HCl (Clonidine Hcl 0.1 Mg Tablet) 0.1 mg PO TID PRN; Protocol PRN Reason: anxiety, hyperarousal Last Admin: 11/06/21 09:03 Dose: 0.1 mg Clonidine HCl (Clonidine Hcl 0.1 Mg Tablet) 0.3 mg PO BEDTIME CHRIS; Protocol Last Admin: 11/05/21 20:14 Dose: 0.3 mg Hydroxyzine HCl (Hydroxyzine Hcl 50 Mg Tablet) 50 mg PO DAILY PRN PRN Reason: Anxiety Last Admin: 11/03/21 21:55 Dose: 50 mg Hydroxyzine HCl (Hydroxyzine Hcl 25 Mg Tablet) 25 mg PO Q6H PRN PRN Reason: Anxiety Last Admin: 11/04/21 11:21 Dose: 25 mg [place] Carbonate ([place]illa Carbonate 300 Mg Tablet) 450 mg PO BID CHRIS Last Admin: 11/06/21 08:37 Dose: 450 mg Magnesium Hydroxide (Milk Of Magnesia 30 Ml Oral.Susp) 30 ml PO DAILY PRN PRN Reason: Constipation Metformin HCl (Metformin Hcl 500 Mg Tablet) 500 mg PO BID [facility] Last Admin: 11/06/21 08:38 Dose: 500 mg Nicotine Polacrilex (Nicotine Polacrilex 2 Mg Gum) 4 mg BUCCAL Q2H PRN PRN Reason: Nicotine Cravings Quetiapine Fumarate (Quetiapine Fumarate 300 Mg Tablet) 600 mg PO BEDTIME CHRIS Last Admin: 11/05/21 20:13 Dose: 600 mg Quetiapine Fumarate (Quetiapine Fumarate 100 Mg Tablet) 100 mg PO TID PRN PRN Reason: AH, agitation, anxiety Last Admin: 11/06/21 09:03 Dose: 100 mg Trazodone HCl (Trazodone Hcl 50 Mg Tablet) 50 mg PO BEDTIME PRN PRN Reason: Insomnia Last Admin: 11/04/21 21:51 Dose: 50 mg Trazodone HCl (Trazodone Hcl 50 Mg Tablet) 150 mg PO BEDTIME CHRIS Last Admin: 11/05/21 20:12 Dose: 150 mg Allergies Allergies Allergy/AdvReac Type Severity Reaction Status Date / Time No Known Allergies Allergy Verified 08/21/21 16:01 Assessment & Plan Assessment & Plan (1) Schizoaffective disorder, depressive type: Status: Acute Code(s): F25.1 - Schizoaffective disorder, depressive type (2) Borderline personality disorder: Status: Acute Code(s): F60.3 - Borderline personality disorder Plan Reality is a 21 y.o. Male who carries a dx of schizoaffective disorder, depressive type. Pt recently hospitalized on [facility] [place] [place] [facility] 08/21/21 due to depression, SI, CAH, and SIB. He was re-admitted to [facility] 09/10/21 due to intentional overdose, CAH. Hx of multiple psych admissions since 2014. Plan: Wasilla level is 0.22. May consider increasing lithium, as pt reported initial benefit. May also consider re-instating venlafaxine, as pt has worsening anxiety and sx of flashbacks, nightmares, perseverative thoughts since it was discontinued. Will start PRN clonidine 0.1 mg for hyperarousal, anxiety. Will start PRN seroquel 50 mg for agitation, anxiety, and pt says this helps with CAH. Q15 min safety checks, CV Monitor response to medications. Monitor for safety in the milieu. Discharge on stabilization. Patient seen. Chart reviewed. Discussed with team. Obtain collateral contact info as needed 11/02/2021 Patient seen in psychiatric follow-up patient's mood irritable dysphoric 11/03: increase seroquel PRNs to 100 mg each as pt reports 50 mg each ineffective.? schedule trazodone 100 mg at HS for insomnia. 11/04: irritable, flippant, dismissive. scheduled clonidine 0.2 mg at HS. pt reporting nightmares of his dying. 11/05: calm and cooperative once again. slept better but still nightmares. increase clonidine to 0.3 at HS and trazodone to 150. submitted 3-day notice. 11/06: continues to feel better, slept well last night. wants to remain until wednesday to assure his gains are stable. no changes to plan. I spent ___20___ minutes with the patient and/or on the patient floor today, greater than?50% of which was spent counseling/coordinating care. Reason for contiued inpatient stay Substantial Risk for: harm to self, inability to function and rapid decompensation
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
[2021-11-06] MEDS: diphenhydrAMINE HCL 50 MG/ML VIAL IM (19:11)
[2021-11-06] MEDS: OLANZapine 10 MG VIAL IM (19:11)
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
[2021-11-06] MEDS: traZODone HCL 50 MG TABLET 150 MG PO (21:06)
[2021-11-06] MEDS: QUEtiapine Fumarate 300 MG TABLET 600 MG PO (21:06)
[2021-11-06] MEDS: cloNIDine HCL 0.1 MG TABLET 0.3 MG PO (21:07)
[2021-11-06] MEDS: hydrOXYzine HCL 25 MG TABLET PO (21:07)
[2021-11-06] MEDS: Magnesium Hydrox/Alum Hydrox 30 ML ORAL.SUSP PO (21:23)
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
[2021-11-06] MEDS: hydrOXYzine HCL 50 MG TABLET PO (22:25)
[2021-11-06] MEDS: traZODone HCL 50 MG TABLET PO (22:25)
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
[2021-11-07 09:20] VITALS: BP 109/56; PULSE 69; RESP 18; TEMP 36.4; O2SAT 100
[2021-11-07] MEDS: Lithium Carbonate 300 MG TABLET 450 MG PO (09:30)
[2021-11-07] MEDS: Acetaminophen 325 MG TABLET 650 MG PO (09:31)
[2021-11-07] MEDS: metFORMIN HCl 500 MG TABLET PO (09:31)
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
== END 2021-11-07 11:23 | disposition home or self-care (01) | DRG 750 ==
LOC: HO.ED 10-30 11:01 → HO.PADLT16 10-30 16:35
PROVIDERS: Emergency Medicine; Admitting Provider Psychiatry & Neurology Psychiatry; Emergency Provider Emergency Medicine Emergency Medical Services; Visit Provider Psychiatry & Neurology Psychiatry
DX: F25.1 Schizoaffective disorder, depressive type (principal); R45.851 Suicidal ideations; E11.9 Type 2 diabetes mellitus without complications; F60.3 Borderline personality disorder; Z20.822 Contact with and (suspected) exposure to COVID-19; Z91.52 Personal history of nonsuicidal self-harm; Z87.891 Personal history of nicotine dependence; Z79.84 Long term (current) use of oral hypoglycemic drugs; Z79.899 Other long term (current) drug therapy
CPT/HCPCS: 36415; 80053; 80061; 80178; 80307; 82607; 82746; 82947; 83036; 84439; 84443; 85027; 87635; 99285; J1200